=== PATIENT | female | born 1960 | race Hispanic/Latino ===

== ENCOUNTER 2017-01-12 15:30 | Inpatient (IN) | payer MEDICAID ==
[2017-01-12 15:33] VITALS: BMI 40.9
[2017-01-12] MEDS ORDERED: Albuterol-Ipratrop 3 mg / 0.5 (3 ml) UD IH PRN (21:54)
[2017-01-12] MEDS ORDERED: Insulin Detemir 100 Units/ml Inj SC SCH (22:00)
[2017-01-12] MEDS: Insulin Lispro (humaLOG) 100 Units/ml Inj SC SCH (22:00)
--- NOTE | 2017-01-12 22:02 | CP.PCM.HP ---
History of Present Illness - History of Present Illness History of Present Illness: PCP: Dr Leal Chief Complaint: Left side weakness HPI: The hx is obtained from the patient and the medical records. This is a 56 years old female with hx of paroxysmal Atrial Fibrillation, DM II, and HTN who was admitted to the [facility] on the 01/10/17 with Dysarthria, right side weakness and diagnosed with Acute CVA. She is now transferred here to the [facility] Acute Rehab unit for continued care and physical therapy. She refers no headaches, dizziness,still having some heaviness of the tongue, bilateral knee weakness and some improvement of the right upper and right lower extremity weakness. PMH: DM II; HTN; Chronic RBBB; Asthma- COPD; Paroxysmal A Fib; Obesity PSH: Umbilical hernia repair; Cesarian Section X3 SH: Smokes 1ppd for 40 years; No Alcohol; No illegal drug use; Uses walker at home because of both knees being unstable; live with family FH: Colon Cancer; DM; HTN; Asthma Allergies: Iodine Medication: Duoneb/ ASA/ Lipitor/ Levemir/ Xarelto/ Lisinopril/ Amlodipine/ Metformin/HCTZ discontinued Present on Admission - Present on Admission Any Indicators Present on Admission: No History of DVT/PE: No History of Uncontrolled Diabetes: No Urinary Catheter: No Decubitus Ulcer Present: No Review of Systems - Constitutional Constitutional: Weakness. absent: Chills, Fever, Lethargy - EENT Eyes: Requires Corrective Lenses. absent: Diplopia, Floaters, Photophobia Ears: absent: Decreased Hearing, Ear Discharge, Ear Pain, Tinnitus Nose/Mouth/Throat: absent: Epistaxis, Nasal Congestion, Nasal Discharge, Sinus Pain, Sinus Pressure Additional comments: Poor vision from the right eye - Cardiovascular Cardiovascular: absent: Chest Pain, Dyspnea, Edema - Respiratory Respiratory: Cough, Wheezing. absent: Dyspnea, Stridor, Chest Congestion - Gastrointestinal Gastrointestinal: absent: Constipation, Diarrhea, Nausea, Vomiting - Genitourinary Genitourinary: absent: Dysuria, Flank Pain, Hematuria, Urinary Frequency - Musculoskeletal Musculoskeletal: Arthralgias. absent: Back Pain Additional comments: Both knees with pain and unsteadyness - Integumentary Integumentary: absent: Pruritus, Rash, Skin Ulcer, Sores, Striae, Swelling - Neurological Neurological: Focal Weakness, Weakness. absent: Confusion, Dizziness, Headaches - Psychiatric Psychiatric: absent: Anxiety, Confusion, Depression, Panic Attacks - Endocrine Endocrine: absent: Palpitations, Polydipsia, Polyphagia, Polyuria - Hematologic/Lymphatic Hematologic: absent: Easy Bleeding, Easy Bruising Past Patient History - Infectious Disease Hx of Infectious Diseases: None - Past Medical History & Family History Past Medical History?: Yes - Past Social History Smoking Status: Heavy Smoker > 10 Cigarettes Daily Chewing Tobacco Use: No Cigar Use: No Alcohol: None Drugs: Denies Home Situation {Lives}: With Family - CARDIAC Hx Cardia Arrhythmia: Yes (P A Fib) Hx Hypertension: Yes - PULMONARY Hx Asthma: Yes Hx Chronic Obstructive Pulmonary Disease (COPD): Yes - NEUROLOGICAL HX Cerebrovascular Accident: Yes - HEENT Hx HEENT Problems: No - RENAL Hx Chronic Kidney Disease: No - ENDOCRINE/METABOLIC Hx Endocrine Disorders: Yes Hx Diabetes Mellitus Type 2: Yes - HEMATOLOGICAL/ONCOLOGICAL Hx Blood Disorders: No - INTEGUMENTARY Hx Dermatological Problems: No - MUSCULOSKELETAL/RHEUMATOLOGICAL Hx Musculoskeletal Disorders: No Hx Falls: No - GASTROINTESTINAL Hx Gastrointestinal Disorders: No - GENITOURINARY/GYNECOLOGICAL Hx Genitourinary Disorders: No - PSYCHIATRIC Hx Substance Use: No - SURGICAL HISTORY Hx Section: Yes (x3) Hx Herniorrhaphy: Yes (Umbilical Hernia) - ANESTHESIA Hx Anesthesia: Yes Hx Anesthesia Reactions: No Meds Allergies/Adverse Reactions: Allergies Allergy/AdvReac Type Severity Reaction Status Date / Time iodine Allergy Verified 11/04/16 12:21 Physical Exam - Constitutional Appears: No Acute Distress - Head Exam Head Exam: ATRAUMATIC, NORMOCEPHALIC - Eye Exam Eye Exam: EOMI, Normal appearance Pupil Exam: NORMAL ACCOMODATION, PERRL - ENT Exam ENT Exam: Mucous Membranes Moist, Normal Exam, Normal External Ear Exam, Normal Oropharynx - Neck Exam Neck exam: Positive for: Full Rom, Normal Inspection. Negative for: Lymphadenopathy, Tenderness - Respiratory Exam Respiratory Exam: Rales. absent: Rhonchi, Wheezes Additional comments: Bibasal fine rales. - Cardiovascular Exam Cardiovascular Exam: REGULAR RHYTHM, RRR, +S1, +S2. absent: Gallop, JVD - GI/Abdominal Exam Additional comments: Obese, +ve Bowel sounds, Soft, nontender, no viceromegaleas. - Rectal Exam Rectal Exam: Deferred - Extremities Exam Extremities exam: Positive for: full ROM, normal inspection. Negative for: calf tenderness, joint swelling - Back Exam Back exam: NORMAL INSPECTION. absent: CVA tenderness (L), CVA tenderness (R) - Neurological Exam Neurological exam: Alert, Oriented x3, Reflexes Normal Additional comments: Awake, Alert, Tongue deviated to the right, Dysarthric, No obvious right facial droop. motor strength 4/5 at both roight upper and lower extremities. - Psychiatric Exam Psychiatric exam: Normal Affect, Normal Mood - Skin Skin Exam: Dry, Intact, Normal Color, Warm Results - Labs Labs: Laboratory Results - last 24 hr 01/12/17 21:45 POC Glucose (mg/dL) 267 H - Imaging and Cardiology Chest x-ray Status: Report reviewed by me Additional comment: 01/10/17 No active disease MRI - head Status: Report reviewed by me Additional comment: 01/11/17 Acute lacunar infarcts in the left internal capsule and bilateral centrum semiovale. Probable more subacute lacunar infarcts in the cerebral hemisphere bilaterally. No associated mass effect. A central embolic source should be excluded given the distribution of the findings. Assessment & Plan - Assessment and Plan (Free Text) Assessment: #. Acute CVA #. HTN #. DM II #. HLD #. Asthma-COPD #. Nicotine Addiction Plan: 56 years old female with hx of paroxysmal Atrial Fibrillation, DM II, and HTN who was admitted to the [facility] on the 01/10/17 with Dysarthria , right side weakness and diagnosed with Acute CVA. She is now transferred here to the [facility] unit for continued care and physical therapy. #. Acute CVA with right side weakness - Consult Dr Vance [employer] -ASA/ Lipitor - PT/OT #. Uncontrolled HTN - Amlodipine/ Lisinopril - Follow Blood pressure #. DM II - Diabetic Diet - Lispro insulin sliding scale according to accucheck - Levemir 14 units SubQ HS - Restart Metformin at 500mg BID with meals - HbA1c 8.9 on 01/10/17 #. HLD - Lipitor #. Asthma-COPD - Duoneb PRN #. Paroxysmal Atrial Fibrillation - Xarelto #. DVT Prophylaxis with SCD - Patient is on Xarelto #. Code Status: Full - Date & Time Date: 01/12/17 Time: 22:02
[2017-01-13] MEDS: Insulin Lispro (humaLOG) 100 Units/ml Inj SC SCH ×4 (08:07→21:12)
[2017-01-13] MEDS: Insulin Detemir 100 Units/ml Inj SC SCH (21:35)
[2017-01-14] MEDS: Insulin Lispro (humaLOG) 100 Units/ml Inj SC SCH ×4 (06:51→21:06)
--- NOTE | 2017-01-14 15:23 | CP.PCM.CON ---
History of Present Illness - History of Present Illness History of Present Illness: 56 year old female with right sided weakness wiht diagnosis of Cva admitted to acute rehab Review of Systems - Musculoskeletal Musculoskeletal: Abnormal Gait, Muscle Weakness Past Patient History - Infectious Disease Hx of Infectious Diseases: None - Past Medical History & Family History Past Medical History?: Yes - Past Social History Smoking Status: Heavy Smoker > 10 Cigarettes Daily Chewing Tobacco Use: No Cigar Use: No Alcohol: None Drugs: Denies Home Situation {Lives}: With Family - CARDIAC Hx Cardia Arrhythmia: Yes (P A Fib) Hx Hypertension: Yes - PULMONARY Hx Asthma: Yes Hx Chronic Obstructive Pulmonary Disease (COPD): Yes - NEUROLOGICAL HX Cerebrovascular Accident: Yes - HEENT Hx HEENT Problems: No - RENAL Hx Chronic Kidney Disease: No - ENDOCRINE/METABOLIC Hx Endocrine Disorders: Yes Hx Diabetes Mellitus Type 2: Yes - HEMATOLOGICAL/ONCOLOGICAL Hx Blood Disorders: No - INTEGUMENTARY Hx Dermatological Problems: No - MUSCULOSKELETAL/RHEUMATOLOGICAL Hx Musculoskeletal Disorders: No Hx Falls: No - GASTROINTESTINAL Hx Gastrointestinal Disorders: No - GENITOURINARY/GYNECOLOGICAL Hx Genitourinary Disorders: No - PSYCHIATRIC Hx Substance Use: No - SURGICAL HISTORY Hx Section: Yes (x3) Hx Herniorrhaphy: Yes (Umbilical Hernia) - ANESTHESIA Hx Anesthesia: Yes Hx Anesthesia Reactions: No Meds Allergies/Adverse Reactions: Allergies Allergy/AdvReac Type Severity Reaction Status Date / Time iodine Allergy SHORTNESS Verified 01/13/17 08:57 OF BREATH radio contrast dye omnipaque Allergy SHORTNESS Uncoded 01/13/17 08:57 OF BREATH - Medications Medications: Current Medications Albuterol/Ipratropium (Duoneb 3 Mg/0.5 Mg (3 Ml) Ud) 3 ml IH Q6 PRN PRN Reason: Shortness of Breath Last Admin: 01/12/17 23:05 Dose: 3 ml Amlodipine Besylate (Norvasc) 10 mg PO DAILY [facility] Last Admin: 01/14/17 09:17 Dose: 10 mg Aspirin (Ecotrin) 81 mg PO DAILY [facility] Last Admin: 01/14/17 09:16 Dose: 81 mg Atorvastatin Calcium (Lipitor) 80 mg PO HS [facility] Last Admin: 01/13/17 21:34 Dose: 80 mg Famotidine (Pepcid) 20 mg PO DAILY [facility] Last Admin: 01/14/17 09:18 Dose: 20 mg Insulin Detemir (Levemir) 14 units SC HS@2200 [facility] Last Admin: 01/13/17 21:35 Dose: 14 units Insulin Human Lispro (Humalog) 0 units SC ACHS [facility] PRN Reason: Protocol Last Admin: 01/14/17 12:44 Dose: 1 units Lisinopril (Zestril) 20 mg PO DAILY [facility] Last Admin: 01/14/17 09:18 Dose: 20 mg Metformin HCl (Glucophage) 500 mg PO BIDWM [facility] Last Admin: 01/14/17 09:16 Dose: 500 mg Nicotine (Nicoderm Cq) 1 patch TD DAILY [facility] Last Admin: 01/14/17 09:17 Dose: 1 patch Nystatin (Nystop Topical Powder) 1 applic TOP TID [facility] Last Admin: 01/14/17 12:47 Dose: 1 applic Rivaroxaban (Xarelto) 20 mg PO QD5 [facility] PRN Reason: Protocol Last Admin: 01/13/17 18:44 Dose: 20 mg Physical Exam - Head Exam Head Exam: ATRAUMATIC, NORMAL INSPECTION, NORMOCEPHALIC - Eye Exam Eye Exam: EOMI, Normal appearance Pupil Exam: NORMAL ACCOMODATION - ENT Exam ENT Exam: Mucous Membranes Moist - Neck Exam Neck exam: Positive for: Normal Inspection - Respiratory Exam Respiratory Exam: Clear to Auscultation Bilateral, NORMAL BREATHING PATTERN - Cardiovascular Exam Cardiovascular Exam: REGULAR RHYTHM - GI/Abdominal Exam GI & Abdominal Exam: Normal Bowel Sounds - Exam External exam: NORMAL EXTERNAL EXAM Bimanual exam: NORMAL BIMANUAL EXAM - Extremities Exam Extremities exam: Positive for: normal inspection Additional comments: right sided weakness right arm and leg muscle strength 2/5 - Back Exam Back exam: NORMAL INSPECTION - Psychiatric Exam Psychiatric exam: Normal Affect, Normal Mood - Skin Skin Exam: Dry, Normal Color, Warm Results - Vital Signs Recent Vital Signs: Last Vital Signs Temp 98.2 F 01/14/17 10:00 Pulse 74 01/14/17 10:00 Resp 20 01/14/17 10:00 BP 156/88 H 01/14/17 10:00 Pulse Ox 95 01/14/17 10:00 - Labs Labs: Laboratory Results - last 24 hr 01/13/17 01/13/17 01/14/17 16:37 21:12 06:20 POC Glucose (mg/dL) 243 H 221 H 185 H 01/14/17 11:38 POC Glucose (mg/dL) 190 H Assessment & Plan (1) Hyperglycemia Status: Acute (2) Hyperlipidemia Status: Acute (3) Prophylactic measure Status: Acute (4) Right bundle branch block Status: Acute (5) Smoking history Status: Acute Priority: High (6) Thrombocytopenia Status: Acute Priority: Medium (7) UTI (urinary tract infection) Status: Acute Priority: High (8) Cerebrovascular accident Assessment and Plan: plan for physical, occupational, rec and speech therapy for Range of motion, transfers, bed mobility and gait training Goals for Mod Independent TO write overall plan of care Status: Acute
--- NOTE | 2017-01-14 15:30 | CP.PCM.PN ---
Subjective - Date & Time of Evaluation Date of Evaluation: 01/14/17 Time of Evaluation: 09:00 - Subjective Subjective: no acute complaints at present,generalized weakness Objective - Vital Signs/Intake and Output Vital Signs (last 24 hours): Temp Pulse Resp BP Pulse Ox 98.2 F 74 20 156/88 H 95 01/14/17 10:00 01/14/17 10:00 01/14/17 10:00 01/14/17 10:00 01/14/17 10:00 - Medications Medications: Current Medications Albuterol/Ipratropium (Duoneb 3 Mg/0.5 Mg (3 Ml) Ud) 3 ml IH Q6 PRN PRN Reason: Shortness of Breath Last Admin: 01/12/17 23:05 Dose: 3 ml Amlodipine Besylate (Norvasc) 10 mg PO DAILY [facility] Last Admin: 01/14/17 09:17 Dose: 10 mg Aspirin (Ecotrin) 81 mg PO DAILY [facility] Last Admin: 01/14/17 09:16 Dose: 81 mg Atorvastatin Calcium (Lipitor) 80 mg PO HS [facility] Last Admin: 01/13/17 21:34 Dose: 80 mg Famotidine (Pepcid) 20 mg PO DAILY [facility] Last Admin: 01/14/17 09:18 Dose: 20 mg Insulin Detemir (Levemir) 14 units SC HS@2200 [facility] Last Admin: 01/13/17 21:35 Dose: 14 units Insulin Human Lispro (Humalog) 0 units SC ACHS [facility] PRN Reason: Protocol Last Admin: 01/14/17 12:44 Dose: 1 units Lisinopril (Zestril) 20 mg PO DAILY [facility] Last Admin: 01/14/17 09:18 Dose: 20 mg Metformin HCl (Glucophage) 500 mg PO BIDWM [facility] Last Admin: 01/14/17 09:16 Dose: 500 mg Nicotine (Nicoderm Cq) 1 patch TD DAILY [facility] Last Admin: 01/14/17 09:17 Dose: 1 patch Nystatin (Nystop Topical Powder) 1 applic TOP TID [facility] Last Admin: 01/14/17 12:47 Dose: 1 applic Rivaroxaban (Xarelto) 20 mg PO QD5 [facility] PRN Reason: Protocol Last Admin: 01/13/17 18:44 Dose: 20 mg - Head Exam Head Exam: ATRAUMATIC, NORMAL INSPECTION, NORMOCEPHALIC - Eye Exam Eye Exam: EOMI, Normal appearance Pupil Exam: NORMAL ACCOMODATION, PERRL - ENT Exam ENT Exam: Mucous Membranes Moist, Normal Exam - Neck Exam Neck Exam: Normal Inspection - Respiratory Exam Respiratory Exam: Clear to Ausculation Bilateral, NORMAL BREATHING PATTERN - Cardiovascular Exam Cardiovascular Exam: REGULAR RHYTHM - GI/Abdominal Exam GI & Abdominal Exam: Normal Bowel Sounds - Rectal Exam Rectal Exam: NORMAL INSPECTION - Exam External exam: NORMAL EXTERNAL EXAM - Extremities Exam Extremities Exam: Normal Inspection - Back Exam Back Exam: NORMAL INSPECTION - Neurological Exam Neurological Exam: Alert, Awake Neuro motor strength exam: Left Upper Extremity: 4, Right Upper Extremity: 3, Left Lower Extremity: 4, Right Lower Extremity: 3 - Psychiatric Exam Psychiatric exam: Normal Affect, Normal Mood - Skin Skin Exam: Normal Color Assessment and Plan (1) Hyperglycemia Status: Acute (2) Hyperlipidemia Status: Acute (3) Prophylactic measure Status: Acute (4) Right bundle branch block Status: Acute (5) Smoking history Status: Acute (6) Thrombocytopenia Status: Acute (7) UTI (urinary tract infection) Status: Acute (8) Cerebrovascular accident Assessment & Plan: plan for Pt, Ot < rec and speech Status: Acute Physiatry Overall Plan of Care - Overall Plan of Care Estimated Length of Stay in Weeks: 2 Rehab Impairment: Mobility, Gait, Cognition, Balance Etiologic Diagnosis: Cerebrovascular Accident Rehab/Medical Prognosis: Fair - Anticipated Interventions Physical Therapy:: Yes Occupational Therapy:: Yes Speech Therapy:: Yes Recreational Therapy:: Yes - Therapy Goals Bed Mobility: Independent Ambulation: Independent Functional Positional Changes:: Independent - Functional Outcomes Functional Outcomes: good - Discharge Plan Discharge Destination: Home
[2017-01-14] MEDS: Insulin Detemir 100 Units/ml Inj SC SCH (22:24)
[2017-01-15] MEDS: Insulin Lispro (humaLOG) 100 Units/ml Inj SC SCH ×4 (06:30→21:52)
--- NOTE | 2017-01-15 15:58 | CP.PCM.PN ---
Subjective - Date & Time of Evaluation Date of Evaluation: 01/15/17 Time of Evaluation: 13:20 - Subjective Subjective: Pt seen and examined. Right side getting stronger Objective - Vital Signs/Intake and Output Vital Signs (last 24 hours): Temp Pulse Resp BP Pulse Ox 97.0 F L 65 18 153/69 H 97 01/15/17 08:06 01/15/17 08:47 01/15/17 08:06 01/15/17 08:47 01/15/17 08:06 - Medications Medications: Current Medications Albuterol/Ipratropium (Duoneb 3 Mg/0.5 Mg (3 Ml) Ud) 3 ml IH Q6 PRN PRN Reason: Shortness of Breath Last Admin: 01/12/17 23:05 Dose: 3 ml Amlodipine Besylate (Norvasc) 10 mg PO DAILY [facility] Last Admin: 01/15/17 08:46 Dose: 10 mg Aspirin (Ecotrin) 81 mg PO DAILY [facility] Last Admin: 01/15/17 08:46 Dose: 81 mg Atorvastatin Calcium (Lipitor) 80 mg PO HS [facility] Last Admin: 01/14/17 22:23 Dose: 80 mg Famotidine (Pepcid) 20 mg PO DAILY [facility] Last Admin: 01/15/17 08:47 Dose: 20 mg Insulin Detemir (Levemir) 14 units SC HS@2200 [facility] Last Admin: 01/14/17 22:24 Dose: 14 units Insulin Human Lispro (Humalog) 0 units SC ACHS [facility] PRN Reason: Protocol Last Admin: 01/15/17 12:32 Dose: 3 units Lisinopril (Zestril) 20 mg PO DAILY [facility] Last Admin: 01/15/17 08:47 Dose: 20 mg Metformin HCl (Glucophage) 500 mg PO BIDWM [facility] Last Admin: 01/15/17 08:46 Dose: 500 mg Nicotine (Nicoderm Cq) 1 patch TD DAILY [facility] Last Admin: 01/15/17 08:46 Dose: 1 patch Nystatin (Nystop Topical Powder) 1 applic TOP TID [facility] Last Admin: 01/15/17 12:33 Dose: 1 applic Rivaroxaban (Xarelto) 20 mg PO QD5 [facility] PRN Reason: Protocol Last Admin: 01/14/17 16:56 Dose: 20 mg - Constitutional Appears: No Acute Distress - Head Exam Head Exam: ATRAUMATIC - Eye Exam Eye Exam: absent: Scleral icterus - ENT Exam ENT Exam: Mucous Membranes Moist - Neck Exam Neck Exam: absent: Meningismus - Respiratory Exam Respiratory Exam: absent: Rhonchi, Wheezes, Respiratory Distress - Cardiovascular Exam Cardiovascular Exam: REGULAR RHYTHM, +S1, +S2 - GI/Abdominal Exam GI & Abdominal Exam: Soft. absent: Tenderness - Rectal Exam Rectal Exam: Deferred - Neurological Exam Neurological Exam: Alert, Oriented x3 - Psychiatric Exam Psychiatric exam: Normal Affect - Skin Skin Exam: Dry, Intact Assessment and Plan - Assessment and Plan (Free Text) Assessment: 56 yo female with history of paroxysmal AFib, DM II, and HTN who was admitted at [facility] on the 01/10/17 because of dysarthria and right side weakness. She was diagnosed with Acute CVA. She was transferred to [facility] for continued care and physical therapy. 1. Acute CVA with right side weakness Dr Vance on consult continue ASA and Lipitor continue PT/OT 2. HTN BP better controlled continue Amlodipine/ Lisinopril 3. DM II Diabetic Diet Lispro insulin sliding scale according to accucheck Levemir 14 units SubQ HS Metformin at 500mg BID HbA1c 8.9 on 01/10/17 4. HLD continue Lipitor 5. COPD Duoneb PRN 6. Paroxysmal Atrial Fibrillation continue Xarelto rate controlled 7. DVT Prophylaxis with SCD Patient is on Xarelto
[2017-01-15] MEDS: Insulin Detemir 100 Units/ml Inj SC SCH (21:53)
[2017-01-16] MEDS: Insulin Lispro (humaLOG) 100 Units/ml Inj SC SCH ×4 (06:46→21:52)
--- NOTE | 2017-01-16 15:28 | CT ---
PROCEDURE: CT HEAD WITHOUT CONTRAST. HISTORY: Acute CVA, increasing weakness COMPARISON: No prior study available comparison TECHNIQUE: Axial computed tomography images were obtained through the head/brain without intravenous contrast. Radiation dose: Total exam DLP = 885.96 mGy-cm. This CT exam was performed using one or more of the following dose reduction techniques: Automated exposure control, adjustment of the mA and/or kV according to patient size, and/or use of iterative reconstruction technique. FINDINGS: HEMORRHAGE: No acute parenchymal, subarachnoid nor extra-axial hemorrhage. BRAIN: There is a vague elliptical shaped area of low attenuation in the left basal ganglia that may indicate acute infarct. Note these findings were discussed with Dr. Philip at approximately 3:20 p.m. with written down and read back verification. Mild chronic periventricular white matter ischemic changes extending peripherally into the subcortical white matter of both cerebral hemispheres. Moderate central volume loss Mild vascular calcifications are present. VENTRICLES: No obstructive hydrocephalus CALVARIUM: No acute calvarial fracture seen. PARANASAL SINUSES: Mild mucosal thickening within the ethmoid air complex as well as sphenoid sinus. Minor mucosal thickening noted within both maxillary antra as well. MASTOID AIR CELLS: Partial opacification right mastoid air complex. . OTHER FINDINGS: None. IMPRESSION: There is an small elliptical shaped area of low attenuation in the left basal ganglia that may represent an acute infarct Minor chronic periventricular white matter ischemic changes. Moderate central volume loss.
--- NOTE | 2017-01-16 15:48 | CP.PCM.CON ---
History of Present Illness - History of Present Illness History of Present Illness: Mrs. Adams is a 56-year-old woman with a past medical history of atrial fibrillation, HTN, CAD who had an ischemic stroke involving the left basal ganglia about 6 days ago and is now being treated in acute rehab. According to the physical therapists, the patient was initially able to walk about 100 feet with assistance and now can only walk about 40 feet and she complains of also feeling weaker on the right side. CT of the head was ordered and showed some hypodensity in the left basal ganglia consistent with the previously reported MRI and the patients clinical presentation. Review of Systems - Review of Systems All systems: reviewed and no additional remarkable complaints except Past Patient History - Infectious Disease Hx of Infectious Diseases: None - Past Medical History & Family History Past Medical History?: Yes - Past Social History Smoking Status: Heavy Smoker > 10 Cigarettes Daily Chewing Tobacco Use: No Cigar Use: No Alcohol: None Drugs: Denies Home Situation {Lives}: With Family - CARDIAC Hx Hypertension: Yes - PULMONARY Hx Chronic Obstructive Pulmonary Disease (COPD): Yes - NEUROLOGICAL HX Cerebrovascular Accident: Yes - HEENT Hx HEENT Problems: No - RENAL Hx Chronic Kidney Disease: No - ENDOCRINE/METABOLIC Hx Diabetes Mellitus Type 2: Yes - HEMATOLOGICAL/ONCOLOGICAL Hx Blood Disorders: No - INTEGUMENTARY Hx Dermatological Problems: No - MUSCULOSKELETAL/RHEUMATOLOGICAL Hx Musculoskeletal Disorders: No Hx Falls: No - GASTROINTESTINAL Hx Gastrointestinal Disorders: No - GENITOURINARY/GYNECOLOGICAL Hx Genitourinary Disorders: No - PSYCHIATRIC Hx Substance Use: No - SURGICAL HISTORY Hx Section: Yes (x3) Hx Herniorrhaphy: Yes (Umbilical Hernia) - ANESTHESIA Hx Anesthesia: Yes Hx Anesthesia Reactions: No Meds Allergies/Adverse Reactions: Allergies Allergy/AdvReac Type Severity Reaction Status Date / Time iodine Allergy SHORTNESS Verified 01/13/17 08:57 OF BREATH radio contrast dye omnipaque Allergy SHORTNESS Uncoded 01/13/17 08:57 OF BREATH - Medications Medications: Current Medications Albuterol/Ipratropium (Duoneb 3 Mg/0.5 Mg (3 Ml) Ud) 3 ml IH Q6 PRN PRN Reason: Shortness of Breath Last Admin: 01/12/17 23:05 Dose: 3 ml Amlodipine Besylate (Norvasc) 10 mg PO DAILY [facility] Last Admin: 01/16/17 09:25 Dose: 10 mg Aspirin (Ecotrin) 81 mg PO DAILY [facility] Last Admin: 01/16/17 09:24 Dose: 81 mg Atorvastatin Calcium (Lipitor) 80 mg PO HS [facility] Last Admin: 01/15/17 21:49 Dose: 80 mg Famotidine (Pepcid) 20 mg PO DAILY [facility] Last Admin: 01/16/17 09:25 Dose: 20 mg Dexamethasone 10 mg/ Sodium (Chloride) 51 mls @ 102 mls/hr IVPB ONCE ONE Stop: 01/17/17 18:29 Insulin Detemir (Levemir) 14 units SC HS@2200 [facility] Last Admin: 01/15/17 21:53 Dose: 14 units Insulin Human Lispro (Humalog) 0 units SC ACHS [facility] PRN Reason: Protocol Last Admin: 01/16/17 13:12 Dose: 1 units Lisinopril (Zestril) 20 mg PO DAILY [facility] Last Admin: 01/16/17 09:25 Dose: 20 mg Metformin HCl (Glucophage) 500 mg PO BIDWM [facility] Last Admin: 01/16/17 09:24 Dose: 500 mg Nicotine (Nicoderm Cq) 1 patch TD DAILY [facility] Last Admin: 01/16/17 09:24 Dose: 1 patch Nystatin (Nystop Topical Powder) 1 applic TOP TID [facility] Last Admin: 01/16/17 13:12 Dose: 1 applic Rivaroxaban (Xarelto) 20 mg PO QD5 [facility] PRN Reason: Protocol Last Admin: 01/15/17 16:31 Dose: 20 mg Trazodone HCl (Desyrel) 50 mg PO HS PRN PRN Reason: Insomnia Physical Exam - Constitutional Appears: Well - Head Exam Head Exam: ATRAUMATIC, NORMAL INSPECTION, NORMOCEPHALIC - Eye Exam Eye Exam: EOMI, Normal appearance, PERRL Pupil Exam: NORMAL ACCOMODATION, PERRL - ENT Exam ENT Exam: Mucous Membranes Moist, Normal Exam - Neck Exam Neck exam: Positive for: Normal Inspection - Respiratory Exam Respiratory Exam: Clear to Auscultation Bilateral, NORMAL BREATHING PATTERN - Cardiovascular Exam Cardiovascular Exam: REGULAR RHYTHM, +S1, +S2 - GI/Abdominal Exam GI & Abdominal Exam: Normal Bowel Sounds, Soft. absent: Tenderness - Rectal Exam Rectal Exam: Deferred - Extremities Exam Extremities exam: Positive for: normal inspection - Back Exam Back exam: NORMAL INSPECTION - Neurological Exam Neurological exam: Abnormal Gait, Alert, CN II-XII Intact, Oriented x3, Reflexes Normal - Expanded Neurological Exam Expanded Patient oriented to: person, place, time Cranial nerves: EOM's Intact: Normal, Facial Sensation: Normal, Gag Reflex: Normal Ataxia: No Cerebellar Function: Finger to Nose: Normal, Heel to Awad: Normal Upper motor neuron: Babinski Sign: Abnormal Left Sensory exam: Lower Extremity Light Touch: Abnormal Right, Lower Extremity Pin Prick: Abnormal Right, Upper Extremity Light Touch: Abnormal Right, Upper Extremity Pin Prick: Abnormal Right Neuro motor strength exam: Left Upper Extremity: 5, Right Upper Extremity: 4, Left Lower Extremity: 5, Right Lower Extremity: 4 DTR: Bicep Left: 2+, Bicep Right: 3+, Patellar Left: 2+, Patellar Right: 3+ - Psychiatric Exam Psychiatric exam: Normal Affect, Normal Mood - Skin Skin Exam: Dry, Intact, Normal Color, Warm Results - Vital Signs Recent Vital Signs: Last Vital Signs Temp 97.2 F L 01/16/17 10:00 Pulse 72 01/16/17 10:00 Resp 20 01/16/17 10:00 BP 169/79 H 01/16/17 10:00 Pulse Ox 96 01/16/17 10:00 - Labs Labs: Laboratory Results - last 24 hr 01/15/17 01/15/17 01/16/17 16:02 21:08 06:04 POC Glucose (mg/dL) 145 H 162 H 115 H 01/16/17 12:24 POC Glucose (mg/dL) 168 H Assessment & Plan (1) Cerebrovascular accident Assessment and Plan: The patient may be experiencing more edema or progression of the infarct in the left basal ganglia. There is no recommendation for alternative therapy at this time since she is already on anticoagulation and antiplatelet agent. I recommend good glucose control, avoid fevers, avoid hyponatremia and continue PT /OT. The patient should be well hydrated with 2-3 liters of water daily. Continue good BP control and monitor neurological exam Q4 hours. Status: Acute Priority: High
[2017-01-16] MEDS ORDERED: Dexamethasone 10 MG in Sodium Chloride 0.9% 50 ML IVPB ONE (18:00)
[2017-01-16 18:45] LABS: HEMATOCRIT 42.3 % (34.0-47.0); MEAN CELL VOLUME 88.1 fl (81.0-99.0); MEAN CORPUSCULAR HEMOGLOBIN 29.7 pg (27.0-31.0); MEAN CORPUSCULAR HGB CONC 33.7 g/dL (33.0-37.0); RED CELL DISTRIBUTION WIDTH 12.8 % (11.5-14.5); WHITE BLOOD COUNT 10.7 K/uL (4.8-10.8)
[2017-01-16 18:59] LABS: ALB/GLOB RATIO 1.1 (1.0-2.1); ALKALINE PHOSPHATASE 72 U/L (38-126); ALT/SGPT 32 U/L (9-52); AST/SGOT 32 U/L (14-36); BILIRUBIN,TOTAL 0.5 mg/dl (0.2-1.3); BLOOD UREA NITROGEN 25 mg/dl (7-17); CALCIUM 9.3 mg/dL (8.4-10.2); CARBON DIOXIDE 28 mmol/L (22-30); CHLORIDE 99 mmol/L (98-107); GFR AFRICAN-AMERICAN > 60; GLUCOSE,RANDOM 220 mg/dL (65-105); POTASSIUM 4.3 MMOL/L (3.6-5.0); SODIUM 136 mmol/l (132-148); TOTAL PROTEIN 7.6 G/DL (6.3-8.2)
[2017-01-16] MEDS: Insulin Detemir 100 Units/ml Inj SC SCH (21:50)
[2017-01-17] MEDS ORDERED: Bisacodyl 5mg EC Tab PO PRN (02:07)
[2017-01-17] MEDS: Insulin Lispro (humaLOG) 100 Units/ml Inj SC SCH ×4 (07:38→22:15)
--- NOTE | 2017-01-17 12:37 | PSY.TMCNF ---
Nursing - Vital Signs Vital Signs (Last 8 hours): Vital Signs 01/17/17 01/17/17 01/17/17 08:41 08:43 09:54 Temperature 98.0 F Pulse Rate 81 81 81 Respiratory 20 Rate Blood Pressure 174/98 H 174/98 H 174/98 H O2 Sat by Pulse 97 Oximetry Pain: 0 - Medications/Other Issues Comment: Pt at moderate nutritional risk. goals: 1. Pt to consume 75-100% of meals. 2. Blood glucoses to be between 70-180 mg/dl. Follow-up due on 2016 - Bladder Management Bladder Pattern: Normal Voiding Method: Toilet, Bedpan - Bowel Management Bowel Pattern: Normal - Goals/Time Frame Comments: Pt was seen awake and alert laying in bed in her room. Pt agreeable to participate in evaluation session. Pt was able to identify her leisure interests such as watching television, playing games on her tablet, likes to play cards, goes food shopping, and going outside. Pt expressed her goal is to improve functioning and strength in her R hand as pt is R hand dominant. Pt's mood was stable-positive and will benefit from participating in recreation threapy sessions. Physical Therapy - Bed Mobility Bed Mobility: Minimal Assistance - Transfers Wheelchair to Mat: Verbal Cues, Minimal Assistance Sit to Stand: Verbal Cues, Minimal Assistance - Ambulation Level of Assistance: Verbal Cues, Minimal Assistance, Moderate Assistance Distance (ft.): 40 Assistive Devices: Rolling Walker - Stair Negotiation Comment: -on admission evaluation patient negotiated 2 steps with min A; unable to re-assess on Monday 01/15 due to impaired safety and apparent reduced energy from patient - Standing Balance Static Stand: Minimal Assistance Dynamic Stand: Moderate Assistance Comment: RW - Pain Pain (assessed during therapy session): 0 - Insight/Carryover Insight/Carryover: Fair - Patient/Family Education Comment: -safety, therapy schedule, goals, mobility, use of call dempsey, wheelchair mobility, stroke recovery - Assessment/Plan Assessment: Pt receives daily room visits for social support and encouragement to participate in recreation therapy sessions. Pt would benefit from recreation therapy sessions to improve leisure awareness level, utilizing both hands throughout leisure tasks, and improve arousal level. - Goals Timeframe: 1 week Goals: Patient will perform sit to and from stand with CS. Patient will perform short sit to and from supine with CS. Patient will ascend and descend 6 steps with B HRs and CG. Patient will ambulate 150' with rollator and CG. - Provider License Number: [id number] Occupational Therapy - Arousal/Attention/Orientation Patient Orientation: Person, Place, Time, Appropriate to Age, Appropriate to Situation - ADL/IADL Self Feeding: Supervision, Set-up Help Grooming: Verbal Cues, Set-up Help, Minimal Assistance Dressing-Upper Extremity: Verbal Cues, Set-up Help, Moderate Assistance Dressing-Lower Extremity: Verbal Cues, Set-up Help, Moderate Assistance Comment: Bathing: TBA. Homemaking: TBA - Sitting Balance Static Sitting: Supervision Dynamic Sitting: Reaches across midline, Reaches out of base of support, Reaches within base of support, Contact Guard Assist, Minimal Assistance Comment: unsupported at edeg of bed - Transfers Wheelchair to Bed Transfers: Verbal Cues, Set-up Help, Minimal Assistance Toilet Transfers: Verbal Cues, Set-up Help, Minimal Assistance Comment: shower: TBA. -commode adjusted and place over toilet to facilittae transfers - Upper Extremity Status Left Upper Extremity Comment: wnls throughout - Pain Pain (assessed during therapy session): 0 - Insight/Carryover Insight/Carryover: Fair - Patient/Family Education Comment: -safety, therapy schedule, goals, mobility, use of call dempsey, wheelchair mobility, stroke recovery - Assessment/Plan Assessment: Pt receives daily room visits for social support and encouragement to participate in recreation therapy sessions. Pt would benefit from recreation therapy sessions to improve leisure awareness level, utilizing both hands throughout leisure tasks, and improve arousal level. - Goals Timeframe: 1 week Goals: Patient will perform sit to and from stand with CS. Patient will perform short sit to and from supine with CS. Patient will ascend and descend 6 steps with B HRs and CG. Patient will ambulate 150' with rollator and CG. - Provider Therapist: Charu Murillo Speech Chanel - Plan Assessment: Pt receives daily room visits for social support and encouragement to participate in recreation therapy sessions. Pt would benefit from recreation therapy sessions to improve leisure awareness level, utilizing both hands throughout leisure tasks, and improve arousal level. Recreational Therapy - Participation Participation: Participates in Individual and/or Group Sessions - Attendance Attendance: Daily - Activities Leisure Activities: Television - Socialization Level of Socialization: Initiates/interacts freely with care givers and peer - Assessment Assessment/Plan: Pt receives daily room visits for social support and encouragement to participate in recreation therapy sessions. Pt would benefit from recreation therapy sessions to improve leisure awareness level, utilizing both hands throughout leisure tasks, and improve arousal level. Problems Currently Limiting Participation: decrease leisure awareness level, R side weakness-pt is R hand dominant, decrease direction following Goals and Time Frame: Pt will be encouraged to participate in 1:1 and group recreation therapy sessions 3-5x week to improve activity tolerance level, direction following, utilizing R hand throughout tasks, and improve leisure awareness level. - Provider Therapist: Sabine Maharaj, [employer] #[id number] Nutrition - Current Diet Current Diet/ Supplement/ Feedings: Moderate Consistent CHO low fat/low cholesterol High Fiber Advanced Bite. Size Thin Liquids - Appetite Percent Meal Consumed: 75-100% - Assessment/Goals/Time Frame Assessment/Goals/Time Frame: Pt at moderate nutritional risk. goals: 1. Pt to consume 75-100% of meals. 2. Blood glucoses to be between 70-180 mg/dl. Follow-up due on 01/20/2017 - Provider Provider: Shavonne Cespedes RD Case Management - Discharge Plan Discharge Plan: Home with significant other/family Rehabilitation Plan - Treatment Plan Treatment Plan: Physical Therapy, Occupational Therapy, Dietary, Patient/Family Education - Recommendation Recommendation: Physical Therapy, Occupational Therapy, Dietary, Patient/Family Education - Discharge Plan Discharge to: Home (dc 26)
--- NOTE | 2017-01-17 13:38 | CP.PCM.PN ---
Subjective - Date & Time of Evaluation Date of Evaluation: 01/17/17 Time of Evaluation: 13:36 - Subjective Subjective: doing well no complaints PT going well HD stable Objective - Vital Signs/Intake and Output Vital Signs (last 24 hours): Temp Pulse Resp BP Pulse Ox 98.0 F 81 20 174/98 H 97 01/17/17 09:54 01/17/17 09:54 01/17/17 09:54 01/17/17 09:54 01/17/17 09:54 - Medications Medications: Current Medications Albuterol/Ipratropium (Duoneb 3 Mg/0.5 Mg (3 Ml) Ud) 3 ml IH Q6 PRN PRN Reason: Shortness of Breath Last Admin: 01/12/17 23:05 Dose: 3 ml Amlodipine Besylate (Norvasc) 10 mg PO DAILY [facility] Last Admin: 01/17/17 08:41 Dose: 10 mg Aspirin (Ecotrin) 81 mg PO DAILY [facility] Last Admin: 01/17/17 08:40 Dose: 81 mg Atorvastatin Calcium (Lipitor) 80 mg PO HS [facility] Last Admin: 01/16/17 21:52 Dose: 80 mg Bisacodyl (Dulcolax) 10 mg PO DAILY PRN PRN Reason: Constipation Famotidine (Pepcid) 20 mg PO DAILY [facility] Last Admin: 01/17/17 08:43 Dose: 20 mg Insulin Detemir (Levemir) 14 units SC HS@2200 [facility] Last Admin: 01/16/17 21:50 Dose: 14 units Insulin Human Lispro (Humalog) 0 units SC ACHS [facility] PRN Reason: Protocol Last Admin: 01/17/17 12:18 Dose: 3 units Lisinopril (Zestril) 20 mg PO DAILY [facility] Last Admin: 01/17/17 08:43 Dose: 20 mg Metformin HCl (Glucophage) 500 mg PO BIDWM [facility] Last Admin: 01/17/17 08:39 Dose: 500 mg Nicotine (Nicoderm Cq) 1 patch TD DAILY [facility] Last Admin: 01/17/17 08:40 Dose: 1 patch Nystatin (Nystop Topical Powder) 1 applic TOP TID [facility] Last Admin: 01/17/17 12:20 Dose: 1 applic Rivaroxaban (Xarelto) 20 mg PO QD5 [facility] PRN Reason: Protocol Last Admin: 01/16/17 16:44 Dose: 20 mg Trazodone HCl (Desyrel) 50 mg PO HS PRN PRN Reason: Insomnia Last Admin: 01/16/17 22:04 Dose: 50 mg - Labs Labs: 01/16/17 18:15 01/16/17 18:15 - Constitutional Appears: Non-toxic, No Acute Distress - Head Exam Head Exam: ATRAUMATIC, NORMOCEPHALIC - Eye Exam Eye Exam: EOMI, Normal appearance, PERRL Pupil Exam: NORMAL ACCOMODATION - ENT Exam ENT Exam: Mucous Membranes Moist, Normal Oropharynx - Respiratory Exam Respiratory Exam: Clear to Ausculation Bilateral, NORMAL BREATHING PATTERN - Cardiovascular Exam Cardiovascular Exam: RRR, +S1, +S2 - GI/Abdominal Exam GI & Abdominal Exam: Soft, Normal Bowel Sounds. absent: Tenderness, Organomegaly - Extremities Exam Extremities Exam: Normal Capillary Refill. absent: Pedal Edema - Back Exam Back Exam: absent: CVA tenderness (L), CVA tenderness (R) - Neurological Exam Neurological Exam: Alert, Awake - Skin Skin Exam: Dry, Warm Assessment and Plan - Assessment and Plan (Free Text) Plan: 56 yo female with history of paroxysmal AFib, DM II, and HTN who was admitted at [facility] on the 01/10/17 because of dysarthria and right side weakness. She was diagnosed with Acute CVA. She was transferred to [facility] Acute [facility]hab for continued care and physical therapy. 1. Acute CVA with right side weakness Dr Vance on consult continue ASA and Lipitor continue PT/OT Dr. Philip on Consult Neurology, continue management, hydrate with 2-3 liters daily 2. HTN BP better controlled continue Amlodipine/ Lisinopril 3. DM II Diabetic Diet Lispro insulin sliding scale according to accucheck Levemir 14 units SubQ HS Metformin at 500mg BID HbA1c 8.9 on 01/10/17 4. HLD continue Lipitor 5. COPD Duoneb PRN 6. Paroxysmal Atrial Fibrillation continue Xarelto rate controlled 7. DVT Prophylaxis with SCD Patient is on Xarelto
[2017-01-17] MEDS ORDERED: Dexamethasone 10 MG in Sodium Chloride 0.9% 50 ML IVPB ONE (18:00)
--- NOTE | 2017-01-17 19:38 | CP.PCM.PN ---
Subjective - Date & Time of Evaluation Date of Evaluation: 01/17/17 Time of Evaluation: 13:00 - Subjective Subjective: no acute complaints at present, still with arm and leg weakness Objective - Vital Signs/Intake and Output Vital Signs (last 24 hours): Temp Pulse Resp BP Pulse Ox 98.0 F 81 20 174/98 H 97 01/17/17 09:54 01/17/17 09:54 01/17/17 09:54 01/17/17 09:54 01/17/17 09:54 - Medications Medications: Current Medications Albuterol/Ipratropium (Duoneb 3 Mg/0.5 Mg (3 Ml) Ud) 3 ml IH Q6 PRN PRN Reason: Shortness of Breath Last Admin: 01/12/17 23:05 Dose: 3 ml Amlodipine Besylate (Norvasc) 10 mg PO DAILY [facility] Last Admin: 01/17/17 08:41 Dose: 10 mg Aspirin (Ecotrin) 81 mg PO DAILY [facility] Last Admin: 01/17/17 08:40 Dose: 81 mg Atorvastatin Calcium (Lipitor) 80 mg PO HS [facility] Last Admin: 01/16/17 21:52 Dose: 80 mg Bisacodyl (Dulcolax) 10 mg PO DAILY PRN PRN Reason: Constipation Last Admin: 01/17/17 15:49 Dose: 10 mg Famotidine (Pepcid) 20 mg PO DAILY [facility] Last Admin: 01/17/17 08:43 Dose: 20 mg Insulin Detemir (Levemir) 14 units SC HS@2200 [facility] Last Admin: 01/16/17 21:50 Dose: 14 units Insulin Human Lispro (Humalog) 0 units SC ACHS [facility] PRN Reason: Protocol Last Admin: 01/17/17 16:29 Dose: 1 units Lactulose (Enulose) 20 gm PO DAILY PRN PRN Reason: Constipation Lisinopril (Zestril) 20 mg PO DAILY [facility] Last Admin: 01/17/17 08:43 Dose: 20 mg Metformin HCl (Glucophage) 500 mg PO BIDWM [facility] Last Admin: 01/17/17 16:27 Dose: 500 mg Nicotine (Nicoderm Cq) 1 patch TD DAILY [facility] Last Admin: 01/17/17 08:40 Dose: 1 patch Nystatin (Nystop Topical Powder) 1 applic TOP TID [facility] Last Admin: 01/17/17 16:23 Dose: 1 applic Rivaroxaban (Xarelto) 20 mg PO QD5 [facility] PRN Reason: Protocol Last Admin: 01/17/17 16:27 Dose: 20 mg Trazodone HCl (Desyrel) 50 mg PO HS PRN PRN Reason: Insomnia Last Admin: 01/16/17 22:04 Dose: 50 mg - Labs Labs: 01/16/17 18:15 01/16/17 18:15 - Head Exam Head Exam: ATRAUMATIC, NORMAL INSPECTION, NORMOCEPHALIC - Eye Exam Eye Exam: EOMI, Normal appearance Pupil Exam: NORMAL ACCOMODATION - ENT Exam ENT Exam: Mucous Membranes Moist, Normal Exam - Neck Exam Neck Exam: Normal Inspection - Respiratory Exam Respiratory Exam: Clear to Ausculation Bilateral, NORMAL BREATHING PATTERN - Cardiovascular Exam Cardiovascular Exam: REGULAR RHYTHM - GI/Abdominal Exam GI & Abdominal Exam: Normal Bowel Sounds - Rectal Exam Rectal Exam: NORMAL INSPECTION - Exam External exam: NORMAL EXTERNAL EXAM - Extremities Exam Extremities Exam: Normal Capillary Refill, Normal Inspection Additional comments: still with arm and leg weakness - Back Exam Back Exam: NORMAL INSPECTION - Neurological Exam Neurological Exam: Alert, Awake Neuro motor strength exam: Left Upper Extremity: 4, Right Upper Extremity: 3, Left Lower Extremity: 4, Right Lower Extremity: 3 - Psychiatric Exam Psychiatric exam: Normal Affect - Skin Skin Exam: Dry, Normal Color Assessment and Plan (1) Hyperglycemia Status: Acute (2) Hyperlipidemia Status: Acute (3) Prophylactic measure Status: Acute (4) Right bundle branch block Status: Acute (5) Smoking history Status: Acute (6) Thrombocytopenia Status: Acute (7) UTI (urinary tract infection) Status: Acute (8) Cerebrovascular accident Assessment & Plan: plan for physical, occupational, rec therapy discussed dc planning status post team conference Status: Acute
--- NOTE | 2017-01-17 19:59 | CP.PCM.PN ---
Subjective - Date & Time of Evaluation Date of Evaluation: 01/16/17 Time of Evaluation: 16:00 - Subjective Subjective: no acute complaints at present Objective - Vital Signs/Intake and Output Vital Signs (last 24 hours): Temp Pulse Resp BP Pulse Ox 98.0 F 81 20 174/98 H 97 01/17/17 09:54 01/17/17 09:54 01/17/17 09:54 01/17/17 09:54 01/17/17 09:54 - Medications Medications: Current Medications Albuterol/Ipratropium (Duoneb 3 Mg/0.5 Mg (3 Ml) Ud) 3 ml IH Q6 PRN PRN Reason: Shortness of Breath Last Admin: 01/12/17 23:05 Dose: 3 ml Amlodipine Besylate (Norvasc) 10 mg PO DAILY [facility] Last Admin: 01/17/17 08:41 Dose: 10 mg Aspirin (Ecotrin) 81 mg PO DAILY [facility] Last Admin: 01/17/17 08:40 Dose: 81 mg Atorvastatin Calcium (Lipitor) 80 mg PO HS [facility] Last Admin: 01/16/17 21:52 Dose: 80 mg Bisacodyl (Dulcolax) 10 mg PO DAILY PRN PRN Reason: Constipation Last Admin: 01/17/17 15:49 Dose: 10 mg Famotidine (Pepcid) 20 mg PO DAILY [facility] Last Admin: 01/17/17 08:43 Dose: 20 mg Insulin Detemir (Levemir) 14 units SC HS@2200 [facility] Last Admin: 01/16/17 21:50 Dose: 14 units Insulin Human Lispro (Humalog) 0 units SC [facility] PRN Reason: Protocol Last Admin: 01/17/17 16:29 Dose: 1 units Lactulose (Enulose) 20 gm PO DAILY PRN PRN Reason: Constipation Lisinopril (Zestril) 20 mg PO DAILY [facility] Last Admin: 01/17/17 08:43 Dose: 20 mg Metformin HCl (Glucophage) 500 mg PO BIDWM [facility] Last Admin: 01/17/17 16:27 Dose: 500 mg Nicotine (Nicoderm Cq) 1 patch TD DAILY [facility] Last Admin: 01/17/17 08:40 Dose: 1 patch Nystatin (Nystop Topical Powder) 1 applic TOP TID [facility] Last Admin: 08/16/17 16:23 Dose: 1 applic Rivaroxaban (Xarelto) 20 mg PO QD5 [facility] PRN Reason: Protocol Last Admin: 01/17/17 16:27 Dose: 20 mg Trazodone HCl (Desyrel) 50 mg PO HS PRN PRN Reason: Insomnia Last Admin: 01/16/17 22:04 Dose: 50 mg - Labs Labs: 01/16/17 18:15 01/16/17 18:15 - Head Exam Head Exam: ATRAUMATIC, NORMAL INSPECTION, NORMOCEPHALIC - Eye Exam Eye Exam: EOMI, Normal appearance, PERRL Pupil Exam: NORMAL ACCOMODATION, PERRL - ENT Exam ENT Exam: Mucous Membranes Moist, Normal Exam - Neck Exam Neck Exam: Normal Inspection - Respiratory Exam Respiratory Exam: NORMAL BREATHING PATTERN - Cardiovascular Exam Cardiovascular Exam: REGULAR RHYTHM - GI/Abdominal Exam GI & Abdominal Exam: Soft, Normal Bowel Sounds - Rectal Exam Rectal Exam: NORMAL INSPECTION - Exam External exam: NORMAL EXTERNAL EXAM - Extremities Exam Extremities Exam: Full ROM, Normal Capillary Refill - Neurological Exam Neurological Exam: Alert, Awake Neuro motor strength exam: Left Upper Extremity: 4, Right Upper Extremity: 3, Left Lower Extremity: 4, Right Lower Extremity: 3 - Psychiatric Exam Psychiatric exam: Normal Affect, Normal Mood - Skin Skin Exam: Dry, Normal Color Assessment and Plan (1) Hyperglycemia Status: Acute (2) Hyperlipidemia Status: Acute (3) Prophylactic measure Status: Acute (4) Right bundle branch block Status: Acute (5) Smoking history Status: Acute (6) Thrombocytopenia Status: Acute (7) UTI (urinary tract infection) Status: Acute (8) Cerebrovascular accident Assessment & Plan: plan for physical, occupational, rec therapy Status: Acute
--- NOTE | 2017-01-17 21:37 | CP.PCM.CON ---
History of Present Illness - History of Present Illness History of Present Illness: 56 year old female with PMH stroke, DM, HTN, asthma was seen at bedside for painful elongated nails x10. States the nails bother her. They're long and thick. Painful in shoes. Currently toenails aren't causing her pain as she is resting in bed. Seen resting comfortably in bed, NAD, and AA0x3. States she is currently in the hospital from a stroke and is recovering with PT. Denies n/v/ sob/cp/chills or f. Meds: see med list Allergies: contrast dye, iodine FH: DM, HTN, asthma, colon cancer PSH: 3 C-sections, umbilical hernia repair SH: smokes 1 pack/day for 30 years. former smoker, denies elicited drug use or alcohol Past Patient History - Infectious Disease Hx of Infectious Diseases: None - Past Medical History & Family History Past Medical History?: Yes - Past Social History Smoking Status: Heavy Smoker > 10 Cigarettes Daily Chewing Tobacco Use: No Cigar Use: No Alcohol: None Drugs: Denies Home Situation {Lives}: With Family - CARDIAC Hx Hypertension: Yes - PULMONARY Hx Chronic Obstructive Pulmonary Disease (COPD): Yes - NEUROLOGICAL HX Cerebrovascular Accident: Yes - HEENT Hx HEENT Problems: No - RENAL Hx Chronic Kidney Disease: No - ENDOCRINE/METABOLIC Hx Diabetes Mellitus Type 2: Yes - HEMATOLOGICAL/ONCOLOGICAL Hx Blood Disorders: No - INTEGUMENTARY Hx Dermatological Problems: No - MUSCULOSKELETAL/RHEUMATOLOGICAL Hx Musculoskeletal Disorders: No Hx Falls: No - GASTROINTESTINAL Hx Gastrointestinal Disorders: No - GENITOURINARY/GYNECOLOGICAL Hx Genitourinary Disorders: No - PSYCHIATRIC Hx Substance Use: No - SURGICAL HISTORY Hx Section: Yes (x3) Hx Herniorrhaphy: Yes (Umbilical Hernia) - ANESTHESIA Hx Anesthesia: Yes Hx Anesthesia Reactions: No Meds Allergies/Adverse Reactions: Allergies Allergy/AdvReac Type Severity Reaction Status Date / Time iodine Allergy SHORTNESS Verified 01/13/17 08:57 OF BREATH radio contrast dye omnipaque Allergy SHORTNESS Uncoded 01/13/17 08:57 OF BREATH - Medications Medications: Current Medications Albuterol/Ipratropium (Duoneb 3 Mg/0.5 Mg (3 Ml) Ud) 3 ml IH Q6 PRN PRN Reason: Shortness of Breath Last Admin: 01/12/17 23:05 Dose: 3 ml Amlodipine Besylate (Norvasc) 10 mg PO DAILY [facility] Last Admin: 01/17/17 08:41 Dose: 10 mg Aspirin (Ecotrin) 81 mg PO DAILY [facility] Last Admin: 01/17/17 08:40 Dose: 81 mg Atorvastatin Calcium (Lipitor) 80 mg PO HS [facility] Last Admin: 01/16/17 21:52 Dose: 80 mg Bisacodyl (Dulcolax) 10 mg PO DAILY PRN PRN Reason: Constipation Last Admin: 01/17/17 15:49 Dose: 10 mg Famotidine (Pepcid) 20 mg PO DAILY [facility] Last Admin: 01/17/17 08:43 Dose: 20 mg Insulin Detemir (Levemir) 14 units SC HS@2200 [facility] Last Admin: 01/16/17 21:50 Dose: 14 units Insulin Human Lispro (Humalog) 0 units SC [facility] PRN Reason: Protocol Last Admin: 01/17/17 16:29 Dose: 1 units Lactulose (Enulose) 20 gm PO DAILY PRN PRN Reason: Constipation Lisinopril (Zestril) 20 mg PO DAILY [facility] Last Admin: 01/17/17 08:43 Dose: 20 mg Metformin HCl (Glucophage) 500 mg PO BIDWM [facility] Last Admin: 01/17/17 16:27 Dose: 500 mg Nicotine (Nicoderm Cq) 1 patch TD DAILY [facility] Last Admin: 01/17/17 08:40 Dose: 1 patch Nystatin (Nystop Topical Powder) 1 applic TOP TID [facility] Last Admin: 01/17/17 16:23 Dose: 1 applic Rivaroxaban (Xarelto) 20 mg PO QD5 [facility] PRN Reason: Protocol Last Admin: 01/17/17 16:27 Dose: 20 mg Trazodone HCl (Desyrel) 50 mg PO HS PRN PRN Reason: Insomnia Last Admin: 01/16/17 22:04 Dose: 50 mg Physical Exam - Constitutional Appears: Well, Non-toxic, No Acute Distress - Extremities Exam Additional comments: Vasc: DP and PT 1/4 bilaterally, Temperature gradient WNL proximal knee to distal toes, SHELL MOLD BONDER <4 seconds bilaterally, no edema noted Ortho: MM is 3/5 of the right, and 5/5 of the left, generalized right side weakness, mild pain with palpation of the nail plate x10 Neuro: protective sensation diminished, gross sensation intact bilaterally Derm: elongated, harden, thicken, yellow discoloration to the nail plates with subungal debris x10 - Neurological Exam Neurological exam: Alert, Oriented x3 - Psychiatric Exam Psychiatric exam: Normal Affect, Normal Mood Results - Vital Signs Recent Vital Signs: Last Vital Signs Temp 98.2 F 01/17/17 20:46 Pulse 74 01/17/17 20:46 Resp 20 01/17/17 20:46 BP 126/79 01/17/17 20:46 Pulse Ox 98 01/17/17 20:46 - Labs Result Diagrams: 01/16/17 18:15 01/16/17 18:15 Labs: Laboratory Results - last 24 hr 01/16/17 01/17/17 01/17/17 21:09 06:41 11:33 POC Glucose (mg/dL) 268 H 207 H 273 H 01/17/17 16:26 POC Glucose (mg/dL) 160 H Assessment & Plan - Assessment and Plan (Free Text) Assessment: 56 year old female with PMH stroke, DM, HTN presents for painful enlongated, discolored, thicken nails x10 most consistent with onychomycosis Plan: Patient was examined and evaluated. All questions/concerns addressed. Charts, labs, vitals reviewed. Discussed the plan in detail with attending Dr. Spencer. Elongated, thicken nails debrided with a nail nipper to normal thickness and length x10 without complications. Very tiny sheila at the distal medial nail plate. Triple antibiotic applied with dsd and cling Will check on tomorrow to take dressing off. Thank you for the consult. Reconsult if needed. Stable from podiatry standpoint - Date & Time Date: 01/16/17 Time: 09:00
[2017-01-17] MEDS: Insulin Detemir 100 Units/ml Inj SC SCH (22:16)
[2017-01-18] MEDS: Insulin Lispro (humaLOG) 100 Units/ml Inj SC SCH ×4 (07:09→21:50)
[2017-01-18] MEDS ORDERED: Albuterol-Ipratrop 3 mg / 0.5 (3 ml) UD INH PRN (16:10)
[2017-01-18] MEDS: Insulin Detemir 100 Units/ml Inj SC SCH (21:50)
[2017-01-19] MEDS: Insulin Lispro (humaLOG) 100 Units/ml Inj SC SCH ×4 (06:53→21:00)
--- NOTE | 2017-01-19 11:22 | CP.PCM.PN ---
Subjective - Date & Time of Evaluation Date of Evaluation: 01/19/17 Time of Evaluation: 11:00 - Subjective Subjective: Pt seen and examined. Noticed to be touching her left cheek bone and claimed it felt sore. Admitted having nasal congestion Objective - Vital Signs/Intake and Output Vital Signs (last 24 hours): Temp Pulse Resp BP Pulse Ox 98.8 F 86 20 149/98 H 97 01/18/17 20:18 01/19/17 08:56 01/18/17 20:18 01/19/17 08:56 01/18/17 20:18 - Medications Medications: Current Medications Albuterol/Ipratropium (Duoneb 3 Mg/0.5 Mg (3 Ml) Ud) 3 ml IH Q6 PRN PRN Reason: Shortness of Breath Last Admin: 01/12/17 23:05 Dose: 3 ml Albuterol/Ipratropium (Duoneb 3 Mg/0.5 Mg (3 Ml) Ud) 3 ml INH RQ6 PRN PRN Reason: Shortness of Breath Amlodipine Besylate (Norvasc) 10 mg PO DAILY [facility] Last Admin: 01/19/17 08:55 Dose: 10 mg Aspirin (Ecotrin) 81 mg PO DAILY [facility] Last Admin: 01/19/17 08:54 Dose: 81 mg Atorvastatin Calcium (Lipitor) 80 mg PO HS [facility] Last Admin: 01/18/17 21:49 Dose: 80 mg Bisacodyl (Dulcolax) 10 mg PO DAILY PRN PRN Reason: Constipation Last Admin: 01/17/17 15:49 Dose: 10 mg Famotidine (Pepcid) 20 mg PO DAILY [facility] Last Admin: 01/19/17 08:56 Dose: 20 mg Insulin Detemir (Levemir) 14 units SC HS@2200 [facility] Last Admin: 01/18/17 21:50 Dose: 14 units Insulin Human Lispro (Humalog) 0 units SC [facility] PRN Reason: Protocol Last Admin: 01/19/17 06:53 Dose: Not Given Lactulose (Enulose) 20 gm PO DAILY PRN PRN Reason: Constipation Lisinopril (Zestril) 20 mg PO DAILY [facility] Last Admin: 01/19/17 08:56 Dose: 20 mg Metformin HCl (Glucophage) 500 mg PO BIDWM [facility] Last Admin: 01/19/17 08:54 Dose: 500 mg Nicotine (Nicoderm Cq) 1 patch TD DAILY [facility] Last Admin: 01/19/17 08:55 Dose: 1 patch Nystatin (Nystop Topical Powder) 1 applic TOP TID [facility] Last Admin: 01/19/17 08:55 Dose: 1 applic Rivaroxaban (Xarelto) 20 mg PO QD5 [facility] PRN Reason: Protocol Last Admin: 01/18/17 17:06 Dose: 20 mg Trazodone HCl (Desyrel) 50 mg PO HS PRN PRN Reason: Insomnia Last Admin: 01/18/17 21:49 Dose: 50 mg - Labs Labs: 01/16/17 18:15 01/16/17 18:15 - Constitutional Appears: No Acute Distress - Head Exam Head Exam: ATRAUMATIC - Eye Exam Eye Exam: absent: Scleral icterus - ENT Exam ENT Exam: absent: Normal Exam (slightly swollen and erythematous left zygoma, not warm touch and non-tender) - Neck Exam Neck Exam: absent: Meningismus - Respiratory Exam Respiratory Exam: absent: Rhonchi, Wheezes, Respiratory Distress - Cardiovascular Exam Cardiovascular Exam: REGULAR RHYTHM, +S1, +S2 - GI/Abdominal Exam GI & Abdominal Exam: Soft. absent: Tenderness - Rectal Exam Rectal Exam: Deferred - Neurological Exam Neurological Exam: Alert, Oriented x3 - Psychiatric Exam Psychiatric exam: Normal Affect - Skin Skin Exam: Dry, Intact Assessment and Plan - Assessment and Plan (Free Text) Assessment: 56 yo female with history of paroxysmal AFib, DM II, and HTN who was admitted at [facility] on the 01/10/17 because of dysarthria and right side weakness. She was diagnosed with Acute CVA. She was transferred to [facility] for continued care and physical therapy. 1. Acute CVA with right side weakness continue ASA and Lipitor continue PT/OT 2. HTN BP slightly elevated continue Amlodipine and Lisinopril resume HCTZ 12.5mg PO daily as patient takes at home 3. DM II BS slightly elevated increase Metformin to 850mg PO q 12hrs Levemir 14 units SC HS BMP in am 4. HLD continue Lipitor 5. COPD Duoneb PRN 6. Paroxysmal Atrial Fibrillation presently in sinus with rate controlled continue Xarelto 7. DVT Prophylaxis with SCD Patient is on Xarelto 8. Sore/Swollen Left Upper Cheek CT scan of sinuses
--- NOTE | 2017-01-19 14:16 | CT ---
PROCEDURE: CT sinuses dated 01/19/2017 HISTORY: Swelling and red left upper cheek COMPARISON: Correlation made with CT scan brain dated 01/16/2017. TECHNIQUE: Contiguous helical/ transaxial CT images of the paranasal sinuses were obtained. Coronal and sagittal reformats were generated. Radiation dose: Total exam DLP = 727.92 mGy-cm. This CT exam was performed using one or more of the following dose reduction techniques: Automated exposure control, adjustment of the mA and/or kV according to patient size, and/or use of iterative reconstruction technique. . FINDINGS: The current study reveals subtotal opacification of the left maxillary sinus and minor mucosal thickening right maxillary sinus. There is subtotal opacification of the ethmoid air complex with slight extension superiorly into the inferior aspect of the frontal sinus more so on the left side. . Left ostiomeatal complex is occluded. Right ostiomeatal complex appears barely occluded as well. Frontal recesses are opacified. Sphenoethmoidal recesses appear narrowed. Mild hypertrophy of the left mucosa. . The osseous structures appear intact without evidence of sclerosis or destructive changes. Orbits and contents unremarkable. Globes intact and lenses appropriately located. There are no retrobulbar hemorrhages or collections. Optic nerves and extraocular musculature unremarkable. . There may be some minimal infiltration changes within the superior aspect left premaxillary soft tissues. No evidence of subcutaneous abscess or fluid collection Impression: There are mild mucoperiosteal inflammatory changes within all the paranasal sinuses most notably affecting the left maxillary antrum as described. Questionable minimal infiltration changes within the superior left premaxillary soft tissues. No evidence of subcutaneous abscess or fluid collection
[2017-01-19] MEDS: Lactobacillus Acidophilus 500 MU Cap PO SCH (17:43)
--- NOTE | 2017-01-19 20:44 | CP.PCM.PN ---
Subjective - Date & Time of Evaluation Date of Evaluation: 01/19/17 Time of Evaluation: 14:00 - Subjective Subjective: no complaints of any pain or discomfort Objective - Vital Signs/Intake and Output Vital Signs (last 24 hours): Temp Pulse Resp BP Pulse Ox 98.2 F 80 20 154/76 H 96 01/19/17 20:09 01/19/17 20:09 01/19/17 20:09 01/19/17 20:09 01/19/17 20:09 - Medications Medications: Current Medications Albuterol/Ipratropium (Duoneb 3 Mg/0.5 Mg (3 Ml) Ud) 3 ml IH Q6 PRN PRN Reason: Shortness of Breath Last Admin: 01/12/17 23:05 Dose: 3 ml Albuterol/Ipratropium (Duoneb 3 Mg/0.5 Mg (3 Ml) Ud) 3 ml INH RQ6 PRN PRN Reason: Shortness of Breath Amlodipine Besylate (Norvasc) 10 mg PO DAILY [facility] Last Admin: 01/19/17 08:55 Dose: 10 mg Amoxicillin/Clavulanate Potassium (Augmentin 875 Mg-125 Mg Tab) 1 tab PO Q12 [facility] Aspirin (Ecotrin) 81 mg PO DAILY [facility] Last Admin: 01/19/17 08:54 Dose: 81 mg Atorvastatin Calcium (Lipitor) 80 mg PO HS [facility] Last Admin: 01/18/17 21:49 Dose: 80 mg Bisacodyl (Dulcolax) 10 mg PO DAILY PRN PRN Reason: Constipation Last Admin: 01/17/17 15:49 Dose: 10 mg Famotidine (Pepcid) 20 mg PO DAILY [facility] Last Admin: 01/19/17 08:56 Dose: 20 mg Hydrochlorothiazide (Microzide) 12.5 mg PO DAILY [facility] Insulin Detemir (Levemir) 14 units SC HS@2200 [facility] Last Admin: 01/18/17 21:50 Dose: 14 units Insulin Human Lispro (Humalog) 0 units SC [facility] PRN Reason: Protocol Last Admin: 01/19/17 16:30 Dose: Not Given Lactobacillus Acidophilus (Bacid Acidophilus) 1 cap PO BID [facility] Last Admin: 01/19/17 17:43 Dose: 1 cap Lactulose (Enulose) 20 gm PO DAILY PRN PRN Reason: Constipation Lisinopril (Zestril) 20 mg PO DAILY [facility] Last Admin: 01/19/17 08:56 Dose: 20 mg Metformin HCl (Glucophage) 850 mg PO BIDWM [facility] Last Admin: 01/19/17 17:44 Dose: 850 mg Nicotine (Nicoderm Cq) 1 patch TD DAILY [facility] Last Admin: 01/19/17 08:55 Dose: 1 patch Nystatin (Nystop Topical Powder) 1 applic TOP TID [facility] Last Admin: 01/19/17 17:45 Dose: 1 applic Rivaroxaban (Xarelto) 20 mg PO QD5 [facility] PRN Reason: Protocol Last Admin: 01/19/17 17:45 Dose: 20 mg Trazodone HCl (Desyrel) 50 mg PO HS PRN PRN Reason: Insomnia Last Admin: 01/18/17 21:49 Dose: 50 mg - Labs Labs: 01/16/17 18:15 01/16/17 18:15 - Head Exam Head Exam: ATRAUMATIC, NORMAL INSPECTION, NORMOCEPHALIC - Eye Exam Eye Exam: EOMI, Normal appearance Pupil Exam: NORMAL ACCOMODATION - ENT Exam ENT Exam: Mucous Membranes Moist - Neck Exam Neck Exam: Normal Inspection - Respiratory Exam Respiratory Exam: Clear to Ausculation Bilateral, NORMAL BREATHING PATTERN - GI/Abdominal Exam GI & Abdominal Exam: Normal Bowel Sounds - Rectal Exam Rectal Exam: NORMAL INSPECTION - Exam External exam: NORMAL EXTERNAL EXAM - Extremities Exam Extremities Exam: Normal Capillary Refill, Normal Inspection - Neurological Exam Neurological Exam: Alert, Awake Neuro motor strength exam: Left Upper Extremity: 3, Right Upper Extremity: 2/1, Left Lower Extremity: 3, Right Lower Extremity: 3 Additional comments: gait difficulty - Psychiatric Exam Psychiatric exam: Normal Affect, Normal Mood - Skin Skin Exam: Normal Color, Warm Assessment and Plan (1) Hyperglycemia Status: Acute (2) Hyperlipidemia Status: Acute (3) Prophylactic measure Status: Acute (4) Right bundle branch block Status: Acute (5) Smoking history Status: Acute (6) Thrombocytopenia Status: Acute (7) UTI (urinary tract infection) Status: Acute (8) Cerebrovascular accident Assessment & Plan: pT, Ot , Rec , speech continue with monitoring of bowel, bladder and skin Status: Acute
[2017-01-19] MEDS: Amoxicillin-Clav 875-125 mg Tab PO SCH (21:24)
[2017-01-19] MEDS: Insulin Detemir 100 Units/ml Inj SC SCH (21:25)
[2017-01-20] MEDS: Insulin Lispro (humaLOG) 100 Units/ml Inj SC SCH ×4 (06:52→21:36)
[2017-01-20 08:34] LABS: BASO % 0.6 % (0.0-2.0); EOS # 0.2 K/uL (0.0-0.7); HEMATOCRIT 40.8 % (34.0-47.0); LYMPH # 2.2 K/uL (1.0-4.3); LYMPH % 27.8 % (20.0-40.0); MEAN CELL VOLUME 87.8 fl (81.0-99.0); MEAN CORPUSCULAR HEMOGLOBIN 29.5 pg (27.0-31.0); MEAN CORPUSCULAR HGB CONC 33.6 g/dL (33.0-37.0); MEAN PLATELET VOLUME 10.2 fl (7.2-11.7); MONO # 0.7 K/uL (0.0-0.8); MONO % 8.5 % (0.0-10.0); NEUT # 4.7 K/uL (1.8-7.0); NEUT % 60.1 % (50.0-75.0); NRBC % 0.1 % (0.0-0.0); RED CELL DISTRIBUTION WIDTH 12.8 % (11.5-14.5); WHITE BLOOD COUNT 7.9 K/uL (4.8-10.8)
[2017-01-20 08:48] LABS: BLOOD UREA NITROGEN 24 mg/dl (7-17); CALCIUM 9.3 mg/dL (8.4-10.2); CARBON DIOXIDE 30 mmol/L (22-30); CHLORIDE 103 mmol/L (98-107); GFR AFRICAN-AMERICAN > 60; GLUCOSE,RANDOM 109 mg/dL (65-105); POTASSIUM 4.2 MMOL/L (3.6-5.0); SODIUM 140 mmol/l (132-148)
[2017-01-20] MEDS: Amoxicillin-Clav 875-125 mg Tab PO SCH ×2 (08:49→21:35)
[2017-01-20] MEDS: Lactobacillus Acidophilus 500 MU Cap PO SCH ×2 (09:53→16:30)
[2017-01-20] MEDS: Insulin Detemir 100 Units/ml Inj SC SCH (21:37)
[2017-01-21] MEDS: Insulin Lispro (humaLOG) 100 Units/ml Inj SC SCH ×4 (06:37→21:39)
[2017-01-21] MEDS: Amoxicillin-Clav 875-125 mg Tab PO SCH ×2 (08:54→21:38)
[2017-01-21] MEDS: Lactobacillus Acidophilus 500 MU Cap PO SCH ×2 (08:54→16:56)
[2017-01-21] MEDS: Insulin Detemir 100 Units/ml Inj SC SCH (21:42)
[2017-01-22] MEDS: Insulin Lispro (humaLOG) 100 Units/ml Inj SC SCH ×4 (06:46→21:17)
[2017-01-22] MEDS: Lactobacillus Acidophilus 500 MU Cap PO SCH ×2 (10:04→16:29)
[2017-01-22] MEDS: Amoxicillin-Clav 875-125 mg Tab PO SCH ×2 (10:04→21:17)
--- NOTE | 2017-01-22 12:26 | CP.PCM.PN ---
Subjective - Date & Time of Evaluation Date of Evaluation: 01/22/17 Time of Evaluation: 12:25 - Subjective Subjective: patient tolerating PT well no complaints at this time no chest pain no dyspnea HD STABLE NAD Objective - Vital Signs/Intake and Output Vital Signs (last 24 hours): Temp Pulse Resp BP Pulse Ox 97.9 F 93 H 20 154/71 H 100 01/22/17 09:34 01/22/17 10:05 01/22/17 09:34 01/22/17 10:05 01/22/17 09:34 GEN: WDWN, alert, cooperative HEENT: NCAT, PERRL, EOMI NECK: supple, no JVD, no lymphadenopathy CARDIAC: +S1S2 RRR LUNG: CTAB No WRR ABD: SOFT NT ND BSX4 NO MASSES NO HSM EXT: +pedal pulses, NEURO: AAOx3 SKIN warm, dry PSYCH normal mood, normal affect - Medications Medications: Current Medications Albuterol/Ipratropium (Duoneb 3 Mg/0.5 Mg (3 Ml) Ud) 3 ml IH Q6 PRN PRN Reason: Shortness of Breath Last Admin: 01/12/17 23:05 Dose: 3 ml Albuterol/Ipratropium (Duoneb 3 Mg/0.5 Mg (3 Ml) Ud) 3 ml INH RQ6 PRN PRN Reason: Shortness of Breath Amlodipine Besylate (Norvasc) 10 mg PO DAILY [facility] Last Admin: 01/22/17 10:05 Dose: 10 mg Amoxicillin/Clavulanate Potassium (Augmentin 875 Mg-125 Mg Tab) 1 tab PO Q12 [facility] Last Admin: 01/22/17 10:04 Dose: 1 tab Aspirin (Ecotrin) 81 mg PO DAILY [facility] Last Admin: 01/22/17 10:04 Dose: 81 mg Atorvastatin Calcium (Lipitor) 80 mg PO HS [facility] Last Admin: 01/21/17 21:39 Dose: 80 mg Bisacodyl (Dulcolax) 10 mg PO DAILY PRN PRN Reason: Constipation Last Admin: 01/17/17 15:49 Dose: 10 mg Famotidine (Pepcid) 20 mg PO DAILY [facility] Last Admin: 01/22/17 10:06 Dose: 20 mg Hydrochlorothiazide (Microzide) 12.5 mg PO DAILY [facility] Last Admin: 01/22/17 10:05 Dose: 12.5 mg Insulin Detemir (Levemir) 14 units SC HS@2200 [facility] Last Admin: 01/21/17 21:42 Dose: 14 units Insulin Human Lispro (Humalog) 0 units SC [facility] PRN Reason: Protocol Last Admin: 01/22/17 12:18 Dose: Not Given Lactobacillus Acidophilus (Bacid Acidophilus) 1 cap PO BID [facility] Last Admin: 01/22/17 10:04 Dose: 1 cap Lactulose (Enulose) 20 gm PO DAILY PRN PRN Reason: Constipation Lisinopril (Zestril) 20 mg PO DAILY [facility] Last Admin: 01/22/17 10:05 Dose: 20 mg Metformin HCl (Glucophage) 850 mg PO BIDWM [facility] Last Admin: 01/22/17 10:04 Dose: 850 mg Nicotine (Nicoderm Cq) 1 patch TD DAILY [facility] Last Admin: 01/22/17 10:05 Dose: 1 patch Nystatin (Nystop Topical Powder) 1 applic TOP TID [facility] Last Admin: 01/22/17 12:18 Dose: 1 applic Rivaroxaban (Xarelto) 20 mg PO QD5 [facility] PRN Reason: Protocol Last Admin: 01/21/17 16:56 Dose: 20 mg Trazodone HCl (Desyrel) 50 mg PO HS PRN PRN Reason: Insomnia Last Admin: 01/21/17 21:39 Dose: 50 mg - Labs Labs: 01/20/17 06:30 01/20/17 06:30 Assessment and Plan - Assessment and Plan (Free Text) Plan: 56 yo female with history of paroxysmal AFib, DM II, and HTN who was admitted at [facility] on the 01/10/17 because of dysarthria and right side weakness. She was diagnosed with Acute CVA. She was transferred to [facility] for continued care and physical therapy. 1. Acute CVA with right side weakness continue ASA and Lipitor continue PT/OT 2. HTN BP slightly elevated continue Amlodipine and Lisinopril resume HCTZ 12.5mg PO daily as patient takes at home 3. DM II BS slightly elevated increase Metformin to 850mg PO q 12hrs Levemir 14 units SC HS BMP in am 4. HLD continue Lipitor 5. COPD Duoneb PRN 6. Paroxysmal Atrial Fibrillation presently in sinus with rate controlled continue Xarelto 7. DVT Prophylaxis with SCD Patient is on Xarelto 8. Sore/Swollen Left Upper Cheek CT scan of sinuses - +sinusitis AUGMENTIN 7 DAYS
[2017-01-22] MEDS: Insulin Detemir 100 Units/ml Inj SC SCH (22:10)
[2017-01-23] MEDS: Insulin Lispro (humaLOG) 100 Units/ml Inj SC SCH ×4 (06:30→21:38)
[2017-01-23] MEDS: Amoxicillin-Clav 875-125 mg Tab PO SCH ×2 (08:25→20:32)
[2017-01-23] MEDS: Lactobacillus Acidophilus 500 MU Cap PO SCH ×2 (08:31→17:59)
--- NOTE | 2017-01-23 13:16 | CP.PCM.PN ---
Subjective - Date & Time of Evaluation Date of Evaluation: 01/23/17 Time of Evaluation: 10:00 - Subjective Subjective: no acute complaints at present Objective - Vital Signs/Intake and Output Vital Signs (last 24 hours): Temp Pulse Resp BP Pulse Ox 98.8 F 88 22 163/88 H 95 01/23/17 09:36 01/23/17 09:36 01/23/17 09:36 01/23/17 09:36 01/23/17 09:36 - Medications Medications: Current Medications Albuterol/Ipratropium (Duoneb 3 Mg/0.5 Mg (3 Ml) Ud) 3 ml IH Q6 PRN PRN Reason: Shortness of Breath Last Admin: 01/12/17 23:05 Dose: 3 ml Albuterol/Ipratropium (Duoneb 3 Mg/0.5 Mg (3 Ml) Ud) 3 ml INH RQ6 PRN PRN Reason: Shortness of Breath Amlodipine Besylate (Norvasc) 10 mg PO DAILY [facility] Last Admin: 01/23/17 08:25 Dose: 10 mg Amoxicillin/Clavulanate Potassium (Augmentin 875 Mg-125 Mg Tab) 1 tab PO Q12 [facility] Last Admin: 01/23/17 08:25 Dose: 1 tab Aspirin (Ecotrin) 81 mg PO DAILY [facility] Last Admin: 01/23/17 08:25 Dose: 81 mg Atorvastatin Calcium (Lipitor) 80 mg PO HS [facility] Last Admin: 01/22/17 21:17 Dose: 80 mg Bisacodyl (Dulcolax) 10 mg PO DAILY PRN PRN Reason: Constipation Last Admin: 01/17/17 15:49 Dose: 10 mg Famotidine (Pepcid) 20 mg PO DAILY [facility] Last Admin: 01/23/17 08:25 Dose: 20 mg Hydrochlorothiazide (Microzide) 12.5 mg PO DAILY [facility] Last Admin: 01/23/17 08:26 Dose: 12.5 mg Insulin Detemir (Levemir) 14 units SC HS@2200 [facility] Last Admin: 01/22/17 22:10 Dose: 14 units Insulin Human Lispro (Humalog) 0 units SC [facility] PRN Reason: Protocol Last Admin: 01/23/17 12:26 Dose: 1 units Lactobacillus Acidophilus (Bacid Acidophilus) 1 cap PO BID [facility] Last Admin: 01/23/17 08:31 Dose: 1 cap Lactulose (Enulose) 20 gm PO DAILY PRN PRN Reason: Constipation Lisinopril (Zestril) 20 mg PO DAILY [facility] Last Admin: 01/23/17 08:25 Dose: 20 mg Metformin HCl (Glucophage) 850 mg PO BIDWM [facility] Last Admin: 01/23/17 08:25 Dose: 850 mg Nicotine (Nicoderm Cq) 1 patch TD DAILY [facility] Last Admin: 01/23/17 08:26 Dose: 1 patch Nystatin (Nystop Topical Powder) 1 applic TOP TID [facility] Last Admin: 01/23/17 12:26 Dose: 1 applic Rivaroxaban (Xarelto) 20 mg PO QD5 [facility] PRN Reason: Protocol Last Admin: 01/22/17 16:30 Dose: 20 mg Trazodone HCl (Desyrel) 50 mg PO HS PRN PRN Reason: Insomnia Last Admin: 01/21/17 21:39 Dose: 50 mg - Labs Labs: 01/20/17 06:30 01/20/17 06:30 - Head Exam Head Exam: ATRAUMATIC, NORMAL INSPECTION, NORMOCEPHALIC - Eye Exam Eye Exam: EOMI, Normal appearance, PERRL Pupil Exam: NORMAL ACCOMODATION - ENT Exam ENT Exam: Mucous Membranes Moist, Normal Exam - Neck Exam Neck Exam: Normal Inspection - Respiratory Exam Respiratory Exam: NORMAL BREATHING PATTERN - Cardiovascular Exam Cardiovascular Exam: REGULAR RHYTHM - Rectal Exam Rectal Exam: NORMAL INSPECTION - Exam External exam: NORMAL EXTERNAL EXAM - Extremities Exam Extremities Exam: Normal Capillary Refill, Normal Inspection - Back Exam Back Exam: NORMAL INSPECTION - Neurological Exam Neurological Exam: Alert, Awake Neuro motor strength exam: Left Upper Extremity: 3, Right Upper Extremity: 3, Left Lower Extremity: 3, Right Lower Extremity: 3 - Psychiatric Exam Psychiatric exam: Normal Affect, Normal Mood - Skin Skin Exam: Dry, Intact Assessment and Plan (1) Hyperglycemia Status: Acute (2) Hyperlipidemia Status: Acute (3) Prophylactic measure Status: Acute (4) Right bundle branch block Status: Acute (5) Smoking history Status: Acute (6) Thrombocytopenia Status: Acute (7) UTI (urinary tract infection) Status: Acute (8) Cerebrovascular accident Assessment & Plan: plan for Pt, Ot , REc and speech for team conference Status: Acute
[2017-01-23] MEDS: Insulin Detemir 100 Units/ml Inj SC SCH (21:39)
[2017-01-24] MEDS: Insulin Lispro (humaLOG) 100 Units/ml Inj SC SCH ×4 (06:30→21:00)
[2017-01-24] MEDS: Lactobacillus Acidophilus 500 MU Cap PO SCH ×2 (09:31→16:29)
[2017-01-24] MEDS: Amoxicillin-Clav 875-125 mg Tab PO SCH ×2 (09:31→21:21)
--- NOTE | 2017-01-24 12:26 | PSY.TMCNF ---
Nursing - Vital Signs Vital Signs (Last 8 hours): Vital Signs 01/24/17 01/24/17 09:09 09:32 Temperature 97.5 F L Pulse Rate 82 82 Respiratory 22 Rate Blood Pressure 148/79 148/79 O2 Sat by Pulse 97 Oximetry Pain: 0 - Precautions: Precautions: Fall Prevention - Medications/Other Issues Comment: Pt at moderate nutritional risk. goals:1. Pt to consume 75-100% of meals(not met, continue). 2. Blood glucoses to be between 70-180 mg/dl( partially met, continue). Follow-up due on 01/25/2017 - Consults Comment: NEURO seen( 01/16). podiatry re:toe nail clippings - Toileting Toileting: Moderate Assistance - Bladder Management Bladder Pattern: Normal Voiding Method: Toilet - Bowel Management Bowel Pattern: Constipated Comment: will give laxatives Bowel Management: Moderate Assistance Frequency of Accidents: none - Transfers Transfers: Moderate Assistance - ADL's ADL's: Moderate Assistance - Pain Management Comments: denies - Patient/Family Teaching Comments: safety measures, medications - Goals/Time Frame Comments: safety measures - Provider Provider: JR Gonzalez Physical Therapy - Bed Mobility Bed Mobility: Contact Guard - Transfers Sit to Stand: Verbal Cues, Contact Guard - Ambulation Level of Assistance: Verbal Cues, Contact Guard Distance (ft.): 165 Assistive Devices: Rolling Walker - Stair Negotiation Stairs: Level of Assistance: Minimal Assistance Number of Stairs: 2 Stairs: Assistive Devices: Left Handrail, Right Handrail - Standing Balance Static Stand: Supervision Dynamic Stand: Contact Guard Assist, Minimal Assistance - Pain Pain (assessed during therapy session): 0 - Insight/Carryover Insight/Carryover: Fair - Patient/Family Education Comment: -Adl, functional transfers/mobility training. -RUE HEP/exercises and management. -use of call dempsey for asistance. -pt educated on importance of sitting up in chair during the day for improved recovery/function. -Pt educated on uses/spplication of commode, transfer tu bench with back - Assessment/Plan Assessment: Pt will continue to benefit from skilled Occupational Therapy to address functional impairments to maxmize overall function in self care, functional transfers/mobility and Iadls for safe transition home with services/ proper DMES, + caregiver education. Pt will need the following DMES: -RW. - commode. -transfer tub bench with back. automation engineering manager made aware of DME needs and need for caregiver education with pt's daughter. *Goal: -CS/Supervision with adls, functional transfers/mobility with assistive device. -Caregiver(pt' s daughter) to be I assisting/cueing p with adls, functional transfers/mobility - Goals Timeframe: 5 days Goals: -RUE Increase to 4-/5 throughout, increase nurse obgyn to 10-lbs for increased function. -Grooming: I after setup seated. -Pt's daughter/caregiver to be I to cue/assist & guard pt with adls,functional transfers/mobility, Iadls prn. - Transfers<->bed, commode, chair and other surfaces with CS and verbal cues with RW or rollator. -Toileting: S/Close S and verbal cues using RW/rollator. - Upper body self care: I after setup/seated. -Lower body adls: CG/Min assist and verbal cues. -Gather/retrieve/transport items: CG/Min assist and verbal cues while using RW. -w/c propulsion/management: 100-150 feet with Supervision and verbal cues, maange brakes with Supervision - Provider Therapist: Sandy Dorado PT, DPT License Number: [id number] Occupational Therapy - Arousal/Attention/Orientation Patient Orientation: Person, Place, Time, Appropriate to Age, Appropriate to Situation - ADL/IADL Self Feeding: Supervision, Set-up Help Grooming: Verbal Cues, Set-up Help, Minimal Assistance Bathing-Upper Extremity: Verbal Cues, Set-up Help, Minimal Assistance Bathing-Lower Extremity: Moderate Assistance Dressing-Upper Extremity: Supervision, Verbal Cues, Set-up Help Dressing-Lower Extremity: Verbal Cues, Set-up Help, Minimal Assistance, Moderate Assistance - Sitting Balance Static Sitting: Supervision Dynamic Sitting: Reaches across midline, Reaches out of base of support, Reaches within base of support, Contact Guard Assist, Minimal Assistance Comment: unsupported at edeg of bed - Transfers Wheelchair to Bed Transfers: Verbal Cues, Set-up Help, Minimal Assistance Toilet Transfers: Verbal Cues, Set-up Help, Minimal Assistance Tub Transfers: Verbal Cues, Set-up Help, Moderate Assistance - Wheelchair Management Level of Assistance: Supervision, Verbal Cues, Contact Guard Distance (ft.): 50 - Upper Extremity Status Right Upper Extremity Comment: hemiparesis impaired coordination, strength and digit ROM; strength 3+/5 throughout at this time Left Upper Extremity Comment: ROM WFL 4/5 - Pain Pain (assessed during therapy session): 0 - Insight/Carryover Insight/Carryover: Fair - Patient/Family Education Comment: -Adl, functional transfers/mobility training. -RUE HEP/exercises and management. -use of call dempsey for asistance. -pt educated on importance of sitting up in chair during the day for improved recovery/function. -Pt educated on uses/spplication of commode, transfer tu bench with back - Assessment/Plan Assessment: Pt will continue to benefit from skilled Occupational Therapy to address functional impairments to maxmize overall function in self care, functional transfers/mobility and Iadls for safe transition home with services/ proper DMES, + caregiver education. Pt will need the following DMES: -RW. - commode. -transfer tub bench with back. automation engineering manager made aware of DME needs and need for caregiver education with pt's daughter. *Goal: -CS/Supervision with adls, functional transfers/mobility with assistive device. -Caregiver(pt' s daughter) to be I assisting/cueing p with adls, functional transfers/mobility - Goals Timeframe: 5 days Goals: -RUE Increase to 4-/5 throughout, increase nurse obgyn to 10-lbs for increased function. -Grooming: I after setup seated. -Pt's daughter/caregiver to be I to cue/assist & guard pt with adls,functional transfers/mobility, Iadls prn. - Transfers<->bed, commode, chair and other surfaces with CS and verbal cues with RW or rollator. -Toileting: S/Close S and verbal cues using RW/rollator. - Upper body self care: I after setup/seated. -Lower body adls: CG/Min assist and verbal cues. -Gather/retrieve/transport items: CG/Min assist and verbal cues while using RW. -w/c propulsion/management: 100-150 feet with Supervision and verbal cues, maange brakes with Supervision - Provider Therapist: Mulu Mcguire, OTR/L License Number: [id number] Speech Therapy - Plan Assessment: Pt will continue to benefit from skilled Occupational Therapy to address functional impairments to maxmize overall function in self care, functional transfers/mobility and Iadls for safe transition home with services/ proper DMES, + caregiver education. Pt will need the following DMES: -RW. - commode. -transfer tub bench with back. automation engineering manager made aware of DME needs and need for caregiver education with pt's daughter. *Goal: -CS/Supervision with adls, functional transfers/mobility with assistive device. -Caregiver(pt' s daughter) to be I assisting/cueing p with adls, functional transfers/mobility Recreational Therapy - Participation Participation: Participates in Individual and/or Group Sessions - Attendance Attendance: 3-5 times per week - Activities Leisure Activities: Cards and Games - Socialization Level of Socialization: Initiates/interacts freely with care givers and peer - Diversional Time Diversional Time: television, socializing - Assessment Assessment/Plan: Pt will continue to benefit from skilled Occupational Therapy to address functional impairments to maxmize overall function in self care, functional transfers/mobility and Iadls for safe transition home with services/ proper DMES, + caregiver education. Pt will need the following DMES: -RW. - commode. -transfer tub bench with back. automation engineering manager made aware of DME needs and need for caregiver education with pt's daughter. *Goal: -CS/Supervision with adls, functional transfers/mobility with assistive device. -Caregiver(pt' s daughter) to be I assisting/cueing p with adls, functional transfers/mobility - Provider Therapist: Sabine Maharaj, [employer] #[id number] Nutrition - Current Diet Current Diet/ Supplement/ Feedings: Moderate consistent CHO 2 gram Na low fat/ low cholesterol high fiber. advance bite size thin liquids - Appetite Percent Meal Consumed: 50-74% - Comments Comments: safety measures, medications - Assessment/Goals/Time Frame Assessment/Goals/Time Frame: Pt at moderate nutritional risk. goals:1. Pt to consume 75-100% of meals(not met, continue). 2. Blood glucoses to be between 70-180 mg/dl(partially met, continue). Follow-up due on 01/25/2017 - Provider Provider: Shavonne Cespedes RD Case Management - Psychosocial Assessment Support Systems: Lives with daughter Merle (Merle's fiance) and grandson. Merle [phone] Psychological Interventions/Needs: Pt is alert and oriented x3 Discharge Concerns: Pt has 1 flight to enter and 1 flight to 2nd level bedrooms and bathrooms; Daughter will be starting school real time operator in February Patient/Family Meeting: CM met with pt and rehab team as well as pt's daughter Merle with pt's consent Intervention/Goal/Outcome:: 1. Plan: Tentative d/c date scheduled for 01/27/17 home with skilled homecare (per pt and daughter, pt unable to stay with her brother which was initial plan) vs [facility] pending pt's progress. Pt preferring to be discharged home. 2. Continued stay review LAD 01/18/17; Will fax updates to insurance tomorrow 3. GOAL: Supervision at [facility] level - Pt's daughter agreeable to come for training/education starting next week - Discharge Plan Discharge Plan: Home with significant other/family, Subacute care - Provider Provider: ANSON De La Rosa, ENDOSCOPY TECH License Number: [id number] Rehabilitation Plan - Treatment Plan Treatment Plan: Physical Therapy, Occupational Therapy, Dietary, Patient/Family Education - Recommendation Recommendation: Physical Therapy, Occupational Therapy, Dietary, Patient/Family Education - Discharge Plan Discharge to: Home (Dc 26)
--- NOTE | 2017-01-24 14:46 | CP.PCM.PN ---
Subjective - Date & Time of Evaluation Date of Evaluation: 01/24/17 Time of Evaluation: 09:00 - Subjective Subjective: no acute neck or back pain Objective - Vital Signs/Intake and Output Vital Signs (last 24 hours): Temp Pulse Resp BP Pulse Ox 97.5 F L 82 22 148/79 97 01/24/17 09:09 01/24/17 09:32 01/24/17 09:09 01/24/17 09:32 01/24/17 09:09 - Medications Medications: Current Medications Albuterol/Ipratropium (Duoneb 3 Mg/0.5 Mg (3 Ml) Ud) 3 ml IH Q6 PRN PRN Reason: Shortness of Breath Last Admin: 01/12/17 23:05 Dose: 3 ml Albuterol/Ipratropium (Duoneb 3 Mg/0.5 Mg (3 Ml) Ud) 3 ml INH RQ6 PRN PRN Reason: Shortness of Breath Amlodipine Besylate (Norvasc) 10 mg PO DAILY [facility] Last Admin: 01/24/17 09:32 Dose: 10 mg Amoxicillin/Clavulanate Potassium (Augmentin 875 Mg-125 Mg Tab) 1 tab PO Q12 [facility] Last Admin: 01/24/17 09:31 Dose: 1 tab Aspirin (Ecotrin) 81 mg PO DAILY [facility] Last Admin: 01/24/17 09:31 Dose: 81 mg Atorvastatin Calcium (Lipitor) 80 mg PO HS [facility] Last Admin: 01/23/17 21:39 Dose: 80 mg Bisacodyl (Dulcolax) 10 mg PO DAILY PRN PRN Reason: Constipation Last Admin: 01/17/17 15:49 Dose: 10 mg Famotidine (Pepcid) 20 mg PO DAILY [facility] Last Admin: 01/24/17 09:32 Dose: 20 mg Hydrochlorothiazide (Microzide) 12.5 mg PO DAILY [facility] Last Admin: 01/24/17 09:32 Dose: 12.5 mg Insulin Detemir (Levemir) 14 units SC HS@2200 [facility] Last Admin: 01/23/17 21:39 Dose: 14 units Insulin Human Lispro (Humalog) 0 units SC ACHS [facility] PRN Reason: Protocol Last Admin: 01/24/17 12:01 Dose: Not Given Lactobacillus Acidophilus (Bacid Acidophilus) 1 cap PO BID [facility] Last Admin: 01/24/17 09:31 Dose: 1 cap Lactulose (Enulose) 20 gm PO DAILY PRN PRN Reason: Constipation Lisinopril (Zestril) 20 mg PO DAILY [facility] Last Admin: 01/24/17 09:32 Dose: 20 mg Metformin HCl (Glucophage) 850 mg PO BIDWM [facility] Last Admin: 01/24/17 09:31 Dose: 850 mg Nicotine (Nicoderm Cq) 1 patch TD DAILY [facility] Last Admin: 01/24/17 09:30 Dose: 1 patch Nystatin (Nystop Topical Powder) 1 applic TOP TID [facility] Last Admin: 01/24/17 12:44 Dose: 1 applic Rivaroxaban (Xarelto) 20 mg PO QD5 [facility] PRN Reason: Protocol Last Admin: 01/23/17 17:58 Dose: 20 mg Trazodone HCl (Desyrel) 50 mg PO HS PRN PRN Reason: Insomnia Last Admin: 01/21/17 21:39 Dose: 50 mg - Labs Labs: 01/20/17 06:30 01/20/17 06:30 - Head Exam Head Exam: ATRAUMATIC, NORMAL INSPECTION, NORMOCEPHALIC - Eye Exam Eye Exam: EOMI, Normal appearance, PERRL Pupil Exam: NORMAL ACCOMODATION - ENT Exam ENT Exam: Mucous Membranes Moist, Normal Exam - Neck Exam Neck Exam: Normal Inspection - Respiratory Exam Respiratory Exam: NORMAL BREATHING PATTERN - Cardiovascular Exam Cardiovascular Exam: REGULAR RHYTHM - GI/Abdominal Exam GI & Abdominal Exam: Normal Bowel Sounds - Rectal Exam Rectal Exam: NORMAL INSPECTION - Exam External exam: NORMAL EXTERNAL EXAM - Extremities Exam Extremities Exam: Normal Capillary Refill, Normal Inspection - Neurological Exam Neurological Exam: Alert, Awake Neuro motor strength exam: Left Upper Extremity: 3, Right Upper Extremity: 3, Left Lower Extremity: 3, Right Lower Extremity: 3 - Psychiatric Exam Psychiatric exam: Normal Affect, Normal Mood - Skin Skin Exam: Dry, Intact Assessment and Plan (1) Hyperglycemia Status: Acute (2) Hyperlipidemia Status: Acute (3) Prophylactic measure Status: Acute (4) Right bundle branch block Status: Acute (5) Smoking history Status: Acute (6) Thrombocytopenia Status: Acute (7) UTI (urinary tract infection) Status: Acute (8) Cerebrovascular accident Assessment & Plan: plan for pt, Ot , rec and speech therapy status post team conference Status: Acute
--- NOTE | 2017-01-24 19:50 | CP.PCM.PN ---
Subjective - Date & Time of Evaluation Date of Evaluation: 01/24/17 Time of Evaluation: 11:50 - Subjective Subjective: Pt seen and examined. Denied any complaint. Objective - Vital Signs/Intake and Output Vital Signs (last 24 hours): Temp Pulse Resp BP Pulse Ox 97.5 F L 82 22 148/79 97 01/24/17 09:09 01/24/17 09:32 01/24/17 09:09 01/24/17 09:32 01/24/17 09:09 - Medications Medications: Current Medications Albuterol/Ipratropium (Duoneb 3 Mg/0.5 Mg (3 Ml) Ud) 3 ml IH Q6 PRN PRN Reason: Shortness of Breath Last Admin: 01/12/17 23:05 Dose: 3 ml Albuterol/Ipratropium (Duoneb 3 Mg/0.5 Mg (3 Ml) Ud) 3 ml INH RQ6 PRN PRN Reason: Shortness of Breath Amlodipine Besylate (Norvasc) 10 mg PO DAILY [facility] Last Admin: 01/24/17 09:32 Dose: 10 mg Amoxicillin/Clavulanate Potassium (Augmentin 875 Mg-125 Mg Tab) 1 tab PO Q12 [facility] Last Admin: 01/24/17 09:31 Dose: 1 tab Aspirin (Ecotrin) 81 mg PO DAILY [facility] Last Admin: 01/24/17 09:31 Dose: 81 mg Atorvastatin Calcium (Lipitor) 80 mg PO HS [facility] Last Admin: 01/23/17 21:39 Dose: 80 mg Bisacodyl (Dulcolax) 10 mg PO DAILY PRN PRN Reason: Constipation Last Admin: 01/17/17 15:49 Dose: 10 mg Famotidine (Pepcid) 20 mg PO DAILY [facility] Last Admin: 01/24/17 09:32 Dose: 20 mg Hydrochlorothiazide (Microzide) 12.5 mg PO DAILY [facility] Last Admin: 01/24/17 09:32 Dose: 12.5 mg Insulin Detemir (Levemir) 14 units SC HS@2200 [facility] Last Admin: 01/23/17 21:39 Dose: 14 units Insulin Human Lispro (Humalog) 0 units SC ACHS [facility] PRN Reason: Protocol Last Admin: 01/24/17 16:29 Dose: 1 units Lactobacillus Acidophilus (Bacid Acidophilus) 1 cap PO BID [facility] Last Admin: 01/24/17 16:29 Dose: 1 cap Lactulose (Enulose) 20 gm PO DAILY PRN PRN Reason: Constipation Lisinopril (Zestril) 20 mg PO DAILY [facility] Last Admin: 01/24/17 09:32 Dose: 20 mg Metformin HCl (Glucophage) 850 mg PO BIDWM [facility] Last Admin: 01/24/17 16:27 Dose: 850 mg Nicotine (Nicoderm Cq) 1 patch TD DAILY [facility] Last Admin: 01/24/17 09:30 Dose: 1 patch Nystatin (Nystop Topical Powder) 1 applic TOP TID [facility] Last Admin: 01/24/17 16:27 Dose: 1 applic Rivaroxaban (Xarelto) 20 mg PO QD5 [facility] PRN Reason: Protocol Last Admin: 01/24/17 16:27 Dose: 20 mg Trazodone HCl (Desyrel) 50 mg PO HS PRN PRN Reason: Insomnia Last Admin: 01/21/17 21:39 Dose: 50 mg - Labs Labs: 01/20/17 06:30 01/20/17 06:30 - Constitutional Appears: No Acute Distress - Head Exam Head Exam: ATRAUMATIC - Eye Exam Eye Exam: absent: Scleral icterus - ENT Exam ENT Exam: Mucous Membranes Moist - Neck Exam Neck Exam: absent: Meningismus - Respiratory Exam Respiratory Exam: absent: Rhonchi, Wheezes, Respiratory Distress - Cardiovascular Exam Cardiovascular Exam: REGULAR RHYTHM, +S1, +S2 - GI/Abdominal Exam GI & Abdominal Exam: Soft. absent: Tenderness - Rectal Exam Rectal Exam: Deferred - Neurological Exam Neurological Exam: Alert, Oriented x3 - Psychiatric Exam Psychiatric exam: Normal Affect - Skin Skin Exam: Dry, Intact Assessment and Plan - Assessment and Plan (Free Text) Assessment: 56 yo female with history of paroxysmal AFib, DM II, and HTN who was admitted at [facility] on the 01/10/17 because of dysarthria and right side weakness. She was diagnosed with Acute CVA. She was transferred to [facility] for continued care and physical therapy. 1. Acute CVA with right side weakness continue ASA and Lipitor continue PT/OT 2. HTN BP stable continue Amlodipine, Lisinopril and HCTZ 3. DM II BS relatively controlled Metformin 1000mg PO q 12hrs Levemir 14 units SC HS BMP in am 4. HLD continue Lipitor 5. COPD Duoneb PRN 6. Paroxysmal Atrial Fibrillation rate controlled, in sinus rhythm continue Xarelto 7. DVT Prophylaxis Patient is on Xarelto 8. Sinusitis on Augmentin
[2017-01-24] MEDS: Insulin Detemir 100 Units/ml Inj SC SCH (21:25)
[2017-01-25 06:28] LABS: BLOOD UREA NITROGEN 32 mg/dl (7-17); CALCIUM 9.6 mg/dL (8.4-10.2); CARBON DIOXIDE 31 mmol/L (22-30); CHLORIDE 101 mmol/L (98-107); GFR AFRICAN-AMERICAN > 60; GLUCOSE,RANDOM 129 mg/dL (65-105); POTASSIUM 3.8 MMOL/L (3.6-5.0); SODIUM 141 mmol/l (132-148)
[2017-01-25] MEDS: Insulin Lispro (humaLOG) 100 Units/ml Inj SC SCH ×4 (06:30→21:07)
[2017-01-25] MEDS: Lactobacillus Acidophilus 500 MU Cap PO SCH ×2 (09:08→17:03)
[2017-01-25] MEDS: Amoxicillin-Clav 875-125 mg Tab PO SCH ×2 (09:08→21:06)
--- NOTE | 2017-01-25 13:42 | CP.PCM.PN ---
Subjective - Date & Time of Evaluation Date of Evaluation: 01/25/17 Time of Evaluation: 09:00 - Subjective Subjective: no acute complaints at present, feeling better Objective - Vital Signs/Intake and Output Vital Signs (last 24 hours): Temp Pulse Resp BP Pulse Ox 97.6 F 66 22 146/79 98 01/25/17 08:24 01/25/17 09:10 01/25/17 08:24 01/25/17 09:10 01/25/17 08:24 - Medications Medications: Current Medications Albuterol/Ipratropium (Duoneb 3 Mg/0.5 Mg (3 Ml) Ud) 3 ml IH Q6 PRN PRN Reason: Shortness of Breath Last Admin: 01/12/17 23:05 Dose: 3 ml Albuterol/Ipratropium (Duoneb 3 Mg/0.5 Mg (3 Ml) Ud) 3 ml INH RQ6 PRN PRN Reason: Shortness of Breath Amlodipine Besylate (Norvasc) 10 mg PO DAILY [facility] Last Admin: 01/25/17 09:09 Dose: 10 mg Amoxicillin/Clavulanate Potassium (Augmentin 875 Mg-125 Mg Tab) 1 tab PO Q12 [facility] Stop: 01/25/17 21:00 Last Admin: 01/25/17 09:08 Dose: 1 tab Aspirin (Ecotrin) 81 mg PO DAILY [facility] Last Admin: 01/25/17 09:08 Dose: 81 mg Atorvastatin Calcium (Lipitor) 80 mg PO HS [facility] Last Admin: 01/24/17 21:21 Dose: 80 mg Bisacodyl (Dulcolax) 10 mg PO DAILY PRN PRN Reason: Constipation Last Admin: 01/17/17 15:49 Dose: 10 mg Famotidine (Pepcid) 20 mg PO DAILY [facility] Last Admin: 01/25/17 09:10 Dose: 20 mg Hydrochlorothiazide (Microzide) 12.5 mg PO DAILY [facility] Last Admin: 01/25/17 09:09 Dose: 12.5 mg Insulin Detemir (Levemir) 14 units SC HS@2200 [facility] Last Admin: 01/24/17 21:25 Dose: 14 units Insulin Human Lispro (Humalog) 0 units SC ACHS [facility] PRN Reason: Protocol Last Admin: 01/25/17 12:21 Dose: 1 units Lactobacillus Acidophilus (Bacid Acidophilus) 1 cap PO BID [facility] Last Admin: 01/25/17 09:08 Dose: 1 cap Lactulose (Enulose) 20 gm PO DAILY PRN PRN Reason: Constipation Lisinopril (Zestril) 20 mg PO DAILY [facility] Last Admin: 01/25/17 09:10 Dose: 20 mg Metformin HCl (Glucophage) 1,000 mg PO BID [facility] Last Admin: 01/25/17 09:08 Dose: 1,000 mg Nicotine (Nicoderm Cq) 1 patch TD DAILY [facility] Last Admin: 01/25/17 09:09 Dose: 1 patch Nystatin (Nystop Topical Powder) 1 applic TOP TID [facility] Last Admin: 01/25/17 12:23 Dose: 1 applic Rivaroxaban (Xarelto) 20 mg PO QD5 [facility] PRN Reason: Protocol Last Admin: 01/24/17 16:27 Dose: 20 mg Trazodone HCl (Desyrel) 50 mg PO HS PRN PRN Reason: Insomnia Last Admin: 01/24/17 21:24 Dose: 50 mg - Labs Labs: 01/20/17 06:30 01/25/17 05:35 - Head Exam Head Exam: ATRAUMATIC, NORMAL INSPECTION, NORMOCEPHALIC - Eye Exam Eye Exam: EOMI, Normal appearance, PERRL Pupil Exam: NORMAL ACCOMODATION - ENT Exam ENT Exam: Mucous Membranes Moist, Normal Exam - Neck Exam Neck Exam: Normal Inspection - Respiratory Exam Respiratory Exam: NORMAL BREATHING PATTERN - Cardiovascular Exam Cardiovascular Exam: REGULAR RHYTHM - GI/Abdominal Exam GI & Abdominal Exam: Normal Bowel Sounds - Rectal Exam Rectal Exam: NORMAL INSPECTION - Exam External exam: NORMAL EXTERNAL EXAM - Extremities Exam Extremities Exam: Normal Capillary Refill, Normal Inspection - Back Exam Back Exam: NORMAL INSPECTION - Neurological Exam Neurological Exam: Alert, Awake Neuro motor strength exam: Left Upper Extremity: 3, Right Upper Extremity: 3, Left Lower Extremity: 3, Right Lower Extremity: 3 - Psychiatric Exam Psychiatric exam: Normal Affect, Normal Mood - Skin Skin Exam: Dry, Intact Assessment and Plan (1) Hyperglycemia Status: Acute (2) Hyperlipidemia Status: Acute (3) Prophylactic measure Status: Acute (4) Right bundle branch block Assessment & Plan: plan for PT Ot rec therapy continue present program monitor skin bowel Status: Acute (5) Smoking history Status: Acute (6) Thrombocytopenia Status: Acute (7) UTI (urinary tract infection) Status: Acute (8) Cerebrovascular accident Status: Acute
[2017-01-25] MEDS: Insulin Detemir 100 Units/ml Inj SC SCH (21:07)
[2017-01-26] MEDS: Insulin Lispro (humaLOG) 100 Units/ml Inj SC SCH ×4 (07:02→22:25)
[2017-01-26] MEDS: Lactobacillus Acidophilus 500 MU Cap PO SCH ×2 (09:00→17:22)
--- NOTE | 2017-01-26 10:12 | CP.PCM.CON ---
History of Present Illness - History of Present Illness History of Present Illness: Pt is a 56 year old female admitted to [facility] following a CVA. Med history positive for mini strokes prior according to the patient. Pt is negative for a psychiatric history, she is negative for history of alc/sub abuse. pt spoke of living with famiy members. She has 3 children and resides with her daughter, and grandson, along with daughter's fiancee. Ed/Voc: pt is not employed, she spends her time enjoying her grandchild MSE: pt alert, oriented x2, relevant/coherent, no psychosis, affect full in range, depression denied. Pt spoke of discharge tomorrow and looking foward to return home. Past Patient History - Infectious Disease Hx of Infectious Diseases: None - Past Medical History & Family History Past Medical History?: Yes - Past Social History Smoking Status: Heavy Smoker > 10 Cigarettes Daily Chewing Tobacco Use: No Cigar Use: No Alcohol: None Drugs: Denies Home Situation {Lives}: With Family - CARDIAC Hx Hypertension: Yes - PULMONARY Hx Chronic Obstructive Pulmonary Disease (COPD): Yes - NEUROLOGICAL HX Cerebrovascular Accident: Yes - HEENT Hx HEENT Problems: No - RENAL Hx Chronic Kidney Disease: No - ENDOCRINE/METABOLIC Hx Diabetes Mellitus Type 2: Yes - HEMATOLOGICAL/ONCOLOGICAL Hx Blood Disorders: No - INTEGUMENTARY Hx Dermatological Problems: No - MUSCULOSKELETAL/RHEUMATOLOGICAL Hx Musculoskeletal Disorders: No Hx Falls: No - GASTROINTESTINAL Hx Gastrointestinal Disorders: No - GENITOURINARY/GYNECOLOGICAL Hx Genitourinary Disorders: No - PSYCHIATRIC Hx Substance Use: No - SURGICAL HISTORY Hx Section: Yes (x3) Hx Herniorrhaphy: Yes (Umbilical Hernia) - ANESTHESIA Hx Anesthesia: Yes Hx Anesthesia Reactions: No Meds Allergies/Adverse Reactions: Allergies Allergy/AdvReac Type Severity Reaction Status Date / Time iodine Allergy SHORTNESS Verified 01/13/17 08:57 OF BREATH radio contrast dye omnipaque Allergy SHORTNESS Uncoded 01/13/17 08:57 OF BREATH - Medications Medications: Current Medications Albuterol/Ipratropium (Duoneb 3 Mg/0.5 Mg (3 Ml) Ud) 3 ml IH Q6 PRN PRN Reason: Shortness of Breath Last Admin: 01/12/17 23:05 Dose: 3 ml Albuterol/Ipratropium (Duoneb 3 Mg/0.5 Mg (3 Ml) Ud) 3 ml INH RQ6 PRN PRN Reason: Shortness of Breath Amlodipine Besylate (Norvasc) 10 mg PO DAILY [facility] Last Admin: 01/26/17 08:46 Dose: 10 mg Aspirin (Ecotrin) 81 mg PO DAILY [facility] Last Admin: 01/26/17 08:47 Dose: 81 mg Atorvastatin Calcium (Lipitor) 80 mg PO HS [facility] Last Admin: 01/25/17 21:05 Dose: 80 mg Bisacodyl (Dulcolax) 10 mg PO DAILY PRN PRN Reason: Constipation Last Admin: 01/17/17 15:49 Dose: 10 mg Famotidine (Pepcid) 20 mg PO DAILY [facility] Last Admin: 01/26/17 08:47 Dose: 20 mg Hydrochlorothiazide (Microzide) 12.5 mg PO DAILY [facility] Last Admin: 01/26/17 08:47 Dose: 12.5 mg Insulin Detemir (Levemir) 14 units SC HS@2200 [facility] Last Admin: 01/25/17 21:07 Dose: 14 units Insulin Human Lispro (Humalog) 0 units SC [facility] PRN Reason: Protocol Last Admin: 01/26/17 07:02 Dose: Not Given Lactobacillus Acidophilus (Bacid Acidophilus) 1 cap PO BID [facility] Last Admin: 01/25/17 17:03 Dose: 1 cap Lactulose (Enulose) 20 gm PO DAILY PRN PRN Reason: Constipation Lisinopril (Zestril) 20 mg PO DAILY [facility] Last Admin: 01/26/17 08:47 Dose: 20 mg Metformin HCl (Glucophage) 1,000 mg PO BID [facility] Last Admin: 01/26/17 08:48 Dose: 1,000 mg Nicotine (Nicoderm Cq) 1 patch TD DAILY [facility] Last Admin: 01/26/17 08:46 Dose: 1 patch Nystatin (Nystop Topical Powder) 1 applic TOP TID [facility] Last Admin: 01/26/17 08:47 Dose: 1 applic Rivaroxaban (Xarelto) 20 mg PO QD5 [facility] PRN Reason: Protocol Last Admin: 01/25/17 17:04 Dose: 20 mg Trazodone HCl (Desyrel) 50 mg PO HS PRN PRN Reason: Insomnia Last Admin: 01/24/17 21:24 Dose: 50 mg Results - Vital Signs Recent Vital Signs: Last Vital Signs Temp 96.4 F L 01/26/17 08:02 Pulse 67 01/26/17 08:47 Resp 18 01/26/17 08:02 BP 157/87 H 01/26/17 08:47 Pulse Ox 100 01/26/17 08:02 - Labs Result Diagrams: 01/20/17 06:30 01/25/17 05:35 Labs: Laboratory Results - last 24 hr 01/25/17 01/25/17 01/25/17 11:26 16:08 20:58 POC Glucose (mg/dL) 190 H 185 H 139 H 01/26/17 06:58 POC Glucose (mg/dL) 136 H
--- NOTE | 2017-01-26 17:34 | CP.PCM.PN ---
Subjective - Date & Time of Evaluation Date of Evaluation: 01/26/17 Time of Evaluation: 11:20 - Subjective Subjective: Pt seen and examined. No complaint Objective - Vital Signs/Intake and Output Vital Signs (last 24 hours): Temp Pulse Resp BP Pulse Ox 96.4 F L 67 18 157/87 H 100 01/26/17 08:02 01/26/17 08:47 01/26/17 08:02 01/26/17 08:47 01/26/17 08:02 - Medications Medications: Current Medications Albuterol/Ipratropium (Duoneb 3 Mg/0.5 Mg (3 Ml) Ud) 3 ml IH Q6 PRN PRN Reason: Shortness of Breath Last Admin: 01/12/17 23:05 Dose: 3 ml Albuterol/Ipratropium (Duoneb 3 Mg/0.5 Mg (3 Ml) Ud) 3 ml INH RQ6 PRN PRN Reason: Shortness of Breath Amlodipine Besylate (Norvasc) 10 mg PO DAILY [facility] Last Admin: 01/26/17 08:46 Dose: 10 mg Aspirin (Ecotrin) 81 mg PO DAILY [facility] Last Admin: 01/26/17 08:47 Dose: 81 mg Atorvastatin Calcium (Lipitor) 80 mg PO HS [facility] Last Admin: 01/25/17 21:05 Dose: 80 mg Bisacodyl (Dulcolax) 10 mg PO DAILY PRN PRN Reason: Constipation Last Admin: 01/17/17 15:49 Dose: 10 mg Famotidine (Pepcid) 20 mg PO DAILY [facility] Last Admin: 01/26/17 08:47 Dose: 20 mg Hydrochlorothiazide (Microzide) 12.5 mg PO DAILY [facility] Last Admin: 01/26/17 08:47 Dose: 12.5 mg Insulin Detemir (Levemir) 14 units SC HS@2200 [facility] Last Admin: 01/25/17 21:07 Dose: 14 units Insulin Human Lispro (Humalog) 0 units SC [facility] PRN Reason: Protocol Last Admin: 01/26/17 17:24 Dose: 1 units Lactobacillus Acidophilus (Bacid Acidophilus) 1 cap PO BID [facility] Last Admin: 01/26/17 17:22 Dose: 1 cap Lactulose (Enulose) 20 gm PO DAILY PRN PRN Reason: Constipation Lisinopril (Zestril) 20 mg PO DAILY [facility] Last Admin: 01/26/17 08:47 Dose: 20 mg Metformin HCl (Glucophage) 1,000 mg PO BID [facility] Last Admin: 01/26/17 17:22 Dose: 1,000 mg Nicotine (Nicoderm Cq) 1 patch TD DAILY [facility] Last Admin: 01/26/17 08:46 Dose: 1 patch Nystatin (Nystop Topical Powder) 1 applic TOP TID [facility] Last Admin: 01/26/17 17:30 Dose: Not Given Rivaroxaban (Xarelto) 20 mg PO QD5 [facility] PRN Reason: Protocol Last Admin: 01/26/17 17:25 Dose: 20 mg Trazodone HCl (Desyrel) 50 mg PO HS PRN PRN Reason: Insomnia Last Admin: 01/24/17 21:24 Dose: 50 mg - Labs Labs: 01/20/17 06:30 01/25/17 05:35 - Constitutional Appears: No Acute Distress - Head Exam Head Exam: ATRAUMATIC - Eye Exam Eye Exam: absent: Scleral icterus - ENT Exam ENT Exam: Mucous Membranes Moist - Neck Exam Neck Exam: absent: Meningismus - Respiratory Exam Respiratory Exam: absent: Rhonchi, Wheezes, Respiratory Distress - Cardiovascular Exam Cardiovascular Exam: REGULAR RHYTHM, +S1, +S2 - GI/Abdominal Exam GI & Abdominal Exam: Soft. absent: Tenderness - Rectal Exam Rectal Exam: Deferred - Neurological Exam Neurological Exam: Alert, Oriented x3 - Psychiatric Exam Psychiatric exam: Normal Affect - Skin Skin Exam: Dry, Intact Assessment and Plan - Assessment and Plan (Free Text) Assessment: 56 yo female with history of paroxysmal AFib, DM II, and HTN who was admitted at [facility] on the 01/10/17 because of dysarthria and right side weakness. She was diagnosed with Acute CVA. She was transferred to [facility] for continued care and physical therapy. 1. Acute CVA with right side weakness continue ASA and Lipitor continue PT/OT 2. HTN BP stable continue Amlodipine, Lisinopril and HCTZ 3. DM II BS relatively controlled Metformin 1000mg PO q 12hrs Levemir 14 units SC HS BMP in am 4. HLD continue Lipitor 5. COPD Duoneb PRN 6. Paroxysmal Atrial Fibrillation in sinus and controlled rate continue Xarelto 7. Sinusitis off Augmentin asymptomatic 8. DVT Prophylaxis Patient is on Xarelto
[2017-01-26] MEDS: Insulin Detemir 100 Units/ml Inj SC SCH (22:25)
[2017-01-27 05:25] VITALS: O2SAT 97
[2017-01-27] MEDS: Insulin Lispro (humaLOG) 100 Units/ml Inj SC SCH ×2 (07:30→11:30)
[2017-01-27 09:11] VITALS: BP 143/76; PULSE 77; RESP 19; TEMP 98.1
[2017-01-27] MEDS: Lactobacillus Acidophilus 500 MU Cap PO SCH (09:14)
--- NOTE | 2017-01-27 13:55 | CP.PCM.DIS ---
Provider - Provider Date of Admission: 01/12/17 20:26 Attending physician: Charli Vasquez Time Spent in preparation of Discharge (in minutes): 30 Hospital Course - Lab Results Lab Results: Most Recent Lab Values WBC 7.9 K/uL (4.8-10.8) 01/20/17 06:30 RBC 4.65 Mil/uL (3.80-5.20) 01/20/17 06:30 Hgb 13.7 g/dL (12.0-16.0) 01/20/17 06:30 Hct 40.8 % (34.0-47.0) 01/20/17 06:30 MCV 87.8 fl (81.0-99.0) 01/20/17 06:30 MCH 29.5 pg (27.0-31.0) 01/20/17 06:30 MCHC 33.6 g/dL (33.0-37.0) 01/20/17 06:30 RDW 12.8 % (11.5-14.5) 01/20/17 06:30 Plt Count 117 K/uL (130-400) L 01/20/17 06:30 MPV 10.2 fl (7.2-11.7) 01/20/17 06:30 Neut % (Auto) 60.1 % (50.0-75.0) 01/20/17 06:30 Lymph % (Auto) 27.8 % (20.0-40.0) 01/20/17 06:30 Traverse % (Auto) 8.5 % (0.0-10.0) 01/20/17 06:30 Eos % (Auto) 3.0 % (0.0-4.0) 01/20/17 06:30 Baso % (Auto) 0.6 % (0.0-2.0) 01/20/17 06:30 Neut # 4.7 K/uL (1.8-7.0) 01/20/17 06:30 Lymph # 2.2 K/uL (1.0-4.3) 01/20/17 06:30 Traverse # 0.7 K/uL (0.0-0.8) 01/20/17 06:30 Eos # 0.2 K/uL (0.0-0.7) 01/20/17 06:30 Baso # 0.0 K/uL (0.0-0.2) 01/20/17 06:30 Sodium 141 mmol/l (132-148) 01/25/17 05:35 Potassium 3.8 MMOL/L (3.6-5.0) 01/25/17 05:35 Chloride 101 mmol/L (98-107) 01/25/17 05:35 Carbon Dioxide 31 mmol/L (22-30) H 01/25/17 05:35 Anion Gap 13 (10-20) 01/25/17 05:35 BUN 32 mg/dl (7-17) H 01/25/17 05:35 Creatinine 0.9 mg/dL (0.7-1.2) 01/25/17 05:35 Est GFR ( Amer) > 60 01/25/17 05:35 Est GFR (Non-Af Amer) > 60 01/25/17 05:35 POC Glucose (mg/dL) 155 mg/dL (65-110) H 01/27/17 11:45 Random Glucose 129 mg/dL (65-105) H 01/25/17 05:35 Calcium 9.6 mg/dL (8.4-10.2) 01/25/17 05:35 Total Bilirubin 0.5 mg/dl (0.2-1.3) 01/16/17 18:15 AST 32 U/L (14-36) 01/16/17 18:15 ALT 32 U/L (9-52) 01/16/17 18:15 Alkaline Phosphatase 72 U/L (38-126) 01/16/17 18:15 Total Protein 7.6 G/DL (6.3-8.2) 01/16/17 18:15 Albumin 4.1 g/dL (3.5-5.0) 01/16/17 18:15 Globulin 3.6 gm/dL (2.2-3.9) 01/16/17 18:15 Albumin/Globulin Ratio 1.1 (1.0-2.1) 01/16/17 18:15 - Hospital Course Hospital Course: 56 yo female with history of paroxysmal AFib, DM II, and HTN who was admitted at [facility] on the 01/10/17 because of dysarthria and right side weakness. She was diagnosed with Acute CVA. She was transferred to [facility] for continued care and physical therapy. Tolerated pt well stable for discharge . 1. Acute CVA with right side weakness continue ASA and Lipitor continue PT/OT 2. HTN BP stable continue Amlodipine, Lisinopril and HCTZ 3. DM II BS relatively controlled Metformin 1000mg PO q 12hrs Levemir 14 units SC HS BMP in am 4. HLD continue Lipitor 5. COPD Duoneb PRN 6. Paroxysmal Atrial Fibrillation in sinus and controlled rate continue Xarelto 7. Sinusitis off Augmentin asymptomatic 8. DVT Prophylaxis Patient is on Xarelto Discharge Exam - Head Exam Head Exam: ATRAUMATIC Additional comments: GEN: WDWN, alert, cooperative HEENT: NCAT, PERRL, EOMI NECK: supple, no JVD, no lymphadenopathy CARDIAC: +S1S2 RRR LUNG: CTAB No WRR ABD: SOFT NT ND BSX4 NO MASSES NO HSM EXT: +pedal pulses NEURO: AAOx3 SKIN warm, dry PSYCH normal mood, normal affect Discharge Plan - Discharge Medications Prescriptions: amLODIPine [Norvasc] 5 mg PO DAILY #30 Aspirin [Ecotrin] 81 mg PO DAILY #30 Atorvastatin [Lipitor] 80 mg PO HS #30 Bisacodyl [Dulcolax] 10 mg PO DAILY PRN #30 ect PRN Reason: Constipation Famotidine [Pepcid] 20 mg PO DAILY #30 tab hydroCHLOROthiazide [Microzide] 12.5 mg PO DAILY #30 Insulin Aspart [Novolog] 4 units SC AC #1 Insulin Detemir [Levemir] 14 unit SC DAILY #1 Lisinopril [Zestril] 20 mg PO DAILY #30 MetFORMIN [glucoPHAGE] 1,000 mg PO BID #60 tab Nicotine 14 mg/24 hr [Nicoderm CQ] 14 mg TD DAILY #30 Rivaroxaban [Xarelto] 20 mg PO DAILY #30 tab Rivaroxaban [Xarelto] 20 mg PO DIN #30 traZODone [Desyrel] 50 mg PO HS PRN #30 tab PRN Reason: Insomnia - Follow Up Plan Condition: GOOD Disposition: HOME/ ROUTINE Instructions: Ischemic Stroke (DC)
== END 2017-01-27 12:30 | disposition home health service (06) | DRG 12 ==
PROVIDERS: ADMIT Internal Medicine; ATTEND Internal Medicine
PROC: F07M6FZ Therapeutic Exercise Treatment of Musculoskeletal System - Whole Body using Assistive, Adaptive, Supportive or Protective Equipment (ICD-10-PCS; 2017-01-12)
PROC: F08Z4FZ Home Management Treatment using Assistive, Adaptive, Supportive or Protective Equipment (ICD-10-PCS; 2017-01-12)
PROC: 0HBRXZZ Excision of Toe Nail, External Approach (ICD-10-PCS; principal; 2017-01-17)
DX: I69.951 Hemiplegia and hemiparesis following unspecified cerebrovascular disease affecting right dominant side (principal); D69.6 Thrombocytopenia, unspecified; E11.65 Type 2 diabetes mellitus with hyperglycemia; I48.0 Paroxysmal atrial fibrillation; Z68.41 Body mass index [BMI] 40.0-44.9, adult; B35.1 Tinea unguium; I10 Essential (primary) hypertension; J44.9 Chronic obstructive pulmonary disease, unspecified; N39.0 Urinary tract infection, site not specified; F17.210 Nicotine dependence, cigarettes, uncomplicated; E78.5 Hyperlipidemia, unspecified; Z85.038 Personal history of other malignant neoplasm of large intestine; I69.922 Dysarthria following unspecified cerebrovascular disease; I25.10 Atherosclerotic heart disease of native coronary artery without angina pectoris; I45.10 Unspecified right bundle-branch block; Z79.01 Long term (current) use of anticoagulants; Z79.4 Long term (current) use of insulin; Z79.84 Long term (current) use of oral hypoglycemic drugs; E66.9 Obesity, unspecified